=== PATIENT | male | born 1940 | race Caucasian/White ===

== ENCOUNTER 2023-03-05 11:36 | Outpatient (CLI) | payer MEDICARE, SELFPAY ==
--- NOTE | 2023-03-05 12:52 | ECG_ITS ---
Measurements Intervals [place] Rate: 60 P: 127 IA: 213 QRS: 132 QRSD: 165 T: 168 QT: 442 QTc: 444 Interpretive Statements SINUS RHYTHM WITH FIRST DEGREE AV BLOCK ARM LEADS REVERSED [INVERTED P AND QRS IN I] RIGHT BUNDLE-BRANCH BLOCK BASELINE ARTIFACT ABNORMAL ECG NO PREVIOUS ECG AVAILABLE FOR COMPARISON Electronically Signed On 03-05-2023 17:08:43 CDT by Jg Estrella M.D.
[2023-03-05 13:19] LABS: Basophils Percent Auto 0.5 % (0.2-1.2); Eosinophils Absolute Auto 0.1 K/mm3 (0-0.3); Eosinophils Percent Auto 1.4 % (0-4.4); Hematocrit 40.8 % (42.0-52.0); Hemoglobin 13.4 g/dL (14.0-18.0); Immature Granulocyte Absolute 0.01 K/mm3 (0.00-0.031); Immature Granulocyte Percent A 0.2 % (0-0.5); Lymphocytes Absolute Auto 1.61 K/mm3 (0.9-3.2); Lymphocytes Percent Auto 28.3 % (18.3-44.2); Mean Corpuscular HGB Conc 32.8 g/dl (32-36); Mean Corpuscular Hemoglobin 32.1 pg (26-34); Mean Corpuscular Volume 97.6 fl (80-100); Mean Platelet Volume 9.4 fl (7.4-10.4); Monocytes Absolute Auto 0.7 K/mm3 (0.1-0.6); Monocytes Percent Auto 12.5 % (2.6-8.5); Neutrophils Absolute Auto 3.2 K/mm3 (1.3-6.7); Neutrophils Percent Auto 57.1 % (45.5-73.1); Platelet Count Result 182 k/mm3 (150-375); Red Blood Count 4.18 M/mm3 (4.6-6.20); Red Cell Distribution Width 12.7 % (11.5-14.5); White Blood Count 5.7 K/mm3 (4.5-10.0)
[2023-03-05 13:26] LABS: Hemoglobin A1C 5.2 % (<5.7)
[2023-03-05 13:27] LABS: Urine Cotinine NEGATIVE
[2023-03-05 13:28] LABS: Albumin Level 4.5 g/dL (3.5-5.1); Anion Gap 5 mmol/L (8-16); Blood Urea Nitrogen 31 mg/dL (9-20); Calcium 9.5 mg/dL (8.4-10.2); Carbon Dioxide 26 mmol/L (22-30); Chloride 102 mmol/L (98-107); Estimated Glomerular Filt Rate 49; Glucose 99 mg/dL (65-110); Sodium 133 mmol/L (137-145)
== END 2023-03-05 11:37 | disposition home or self-care (01) ==
LOC: ANHSURGERY 11:45
PROVIDERS: Visit Provider Orthopaedic Surgery
DX: M17.11 Unilateral primary osteoarthritis, right knee (principal); Z01.818 Encounter for other preprocedural examination
CPT/HCPCS: 80048; 80307; 82040; 83036; 85025; 87081; 93005

== ENCOUNTER 2023-03-26 01:28 | Day surgery (SDC) | payer MEDICARE, SELFPAY ==
[2023-03-05 11:57] VITALS: BMI 27.8
--- NOTE | 2023-03-05 12:25 | PC.NURSE ---
Report to the Outpatient Waiting Room, entrance under the green pavilion located off [facility], at time __0600 on date __03/26/23 . Planned Procedure Time: __0730 . Time changes happen often and if your time is changed the preop area will call you the afternoon before. - You and your visitor will be asked to self-screen and do not enter if you have any COVID symptoms. - A mask is optional within the hospital at this time. Patients may have clear liquids (water, carbonated beverages, clear teas, apple juice) until 3 hours prior to surgery with a maximum of 20 ounces. - No food from midnight until time of surgery - Infants may have breast milk until 4 hours before surgery, infant formula 6 hours prior to surgery. - Children will be allowed to drink immediately following surgery. If applicable, please bring a bottle or sippy cup to assist with drinking. Juice, water, soda, and popsicles are readily available. For infants on formula, please bring formula the day of surgery. Pacifiers are allowed. Take the following medications with a SIP of water the morning of surgery: ____NONE DO NOT STOP ANY OF YOUR OTHER PRESCRIPTION MEDICATIONS PRIOR TO SURGERY ?EXCEPT THE FOLLOWING Medications to discontinue per physician ALL VITAMINS AND SUPPLEMENTS 7 DAYS PRE OP PER DR GALLEGOS. LAST DOSE 03/18/23 Please no make-up, nail thai, hairspray, perfume, deodorant, or body powder the day of surgery. No jewelry (including any body piercings) or valuables the day of surgery, leave them at home. Please take a shower or bath the night before, or the morning of, surgery with an antibacterial soap. Wear comfortable, loose fitting clothing. Children are encouraged to wear pajamas. - Jewelry must be removed prior to entering the operating room. Rings and piercings that are not removed may be cut off. - The hospital will not accept responsibility for valuables. - Please leave all valuables, including medications, at home the day of surgery. If you are going home after surgery, a licensed driver license examiner must drive you home. - NO public transportation without another adult if you receive anesthesia. - We recommend that an adult stay with you for 24 hours following discharge. - We also recommend that you do not drive, make important decision, drink alcoholic beverages, or take any drugs that were not prescribed by your health care provider for at least 24 hours after your discharge time. For Pediatric surgeries, we recommend two adults accompany the child home. Follow any additional instructions given to you from your surgeon. If you or anyone in your household have experienced Covid symptoms in the past week, please notify your surgeon or the nurse liaison at the phone number below for possible testing. VERBALAND WRITTEN instructions given to _PATIENT AND KELIN and asked if any additional questions and then verbalized understanding. Patient advised to call surgeon office or pre surgery nurse liaison [phone] if any additional questions.
[2023-03-05 12:46] VITALS: BP 189/66; PULSE 62; RESP 18; TEMP 36.8; O2SAT 98
--- NOTE | 2023-03-23 07:44 | PM.IMHP ---
H&P: HPI History of Present Illness Date/Time: 03/23/23 07:44 Chief Complaint: Bilateral knee DJD Narrative: 83-year-old male patient of Dr. Seth who presents today for a right total knee arthroplasty with cortisone injection left knee. 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 He is having pain on a daily basis. He states he had been having symptoms for more than 3 years. He is a very active 83-year-old and his knees are limiting his activities. He is not able take anti-inflammatories due to history of stomach ulcers as well as ulcerative colitis. Patient has been using Tylenol without improvement of his symptoms. He feels at this point he would like to proceed with total knee arthroplasty rather than continue any nonsurgical treatment Review of Systems Review of Systems: All systems reviewed & are unremarkable except as noted in HPI and below PMFSH Social History Social History Smoking packs per day: 2 Smoking cigarettes per day: 40.0 Years smoked: 20 Smoking pack-years: 40.00 Smoking status: Former smoker Tobacco type: cigarettes Smoking end date: 05/21/84 Additional smoking assessment comments: DENIES ANY FORM OF TOBACCO USE Alcohol intake: current Drinks per week: 21 Living arrangements: with family Spiritual care concerns: No Meds Home Medications and Allergies Home Medications Medication Instructions Recorded Confirmed Type acetaminophen 650 mg 1,300 mg PO Q12H PRN Pain 03/05/23 03/05/23 History tablet,extended release (Tylenol Arthritis Pain) glucosamine-chondroitin 500 mg-400 2 tablet PO DAILY 03/05/23 03/05/23 History mg tablet multivitamin with minerals 1 tablet PO DAILY 03/05/23 03/05/23 History vit A 1000 unit-C 300 mg-E 100 1 tablet PO DAILY 03/05/23 03/05/23 History dqrz-[id number]-[id number] 2 fn-chlg-ozlidh tablet Allergies Allergy/AdvReac Type Severity Reaction Status Date / Time oxycodone AdvReac Nausea and Verified 03/05/23 11:59 Vomiting Exam Narrative: 83-year-old male alert pleasant. He is 5 ft 11 220 lb. His right knee range of motion is from 7-125 degrees. Moderately large effusion. Minimal tenderness over the medial joint line. Mild pain with patellofemoral grind. He has normal stability in the knee. He has excellent quadriceps bulk and strength. Right hip range of motion is full without discomfort. Negative Stinchfield maneuver. He has normal sensation to the right lower extremity without edema. 2+ dorsalis pedis and posterior artery pulse palpable. Resp: Auscultation: clear to auscultation bilaterally Cardio: Rate: regular rate Rhythm: regular rhythm Assessment and Plan Assessment and plan (1) Right knee DJD: Code(s): M17.11 - Unilateral primary osteoarthritis, right knee Status: Acute Plan 83-year-old male who has severe medial compartment osteoarthritis in both knees. At this point he would like to proceed with total knee arthroplasty on the right and also received cortisone injection in the left at that time. Surgical procedure as well as the risks and complications were discussed in detail all questions were answered and we will proceed. Patient has seen his primary care doctor pre-surgical clearance and has been cleared. He has also seen Dr. Buckley, cardiology, he has been cleared without additional testing. Patient's nasal swab was negative S Chem panel his creatinine is elevated to 1.40 GFR was 49. Hemoglobin 13.4 and platelets are 182. We will plan the Eliquis for DVT prophylaxis postoperatively.
[2023-03-26] VITALS (14 sets, daily range): BP systolic 146–182; BP diastolic 65–84; PULSE 67–111; RESP 14–20; TEMP 36.1–36.8; O2SAT 93–100
--- NOTE | ~2023-03-26 | XR_ITS ---
EXAMINATION: [id number] DATE: 03/26/2023 11:21 INDICATION: Postoperative evaluation following right total knee arthroplasty. TECHNIQUE: Anteroposterior and lateral views of the right knee were obtained. COMPARISON: None. FINDINGS: Right total knee arthroplasty with patellar resurfacing appears well seated and in near anatomic alig nment. No fractures identified. Expected postoperative subcutaneous and intra-articular gas. IMPRESSION: 1. Right total knee arthroplasty, negative for postoperative purposes. Reviewed, dictated and finalized at location A. [employer]
[2023-03-26] MEDS: ACETAMINOPHEN 500 MG TABLET 1000 MG PO ×2 (06:15→17:27)
[2023-03-26] MEDS: LACTATED RINGERS 1,000 ML 30 ML IV CONT ×2 (06:22→11:29)
[2023-03-26] MEDS: VANCOMYCIN 1,250 MG/NS 250 ML BAG 166.67 MG IVPB (06:29)
--- NOTE | 2023-03-26 07:01 | P.PNAN_ITS ---
Anes - Initial Pre Proc Eval Procedure: Operation Date: 03/26/23 07:30 Proposed Procedures p Right Total Knee Arthroplasty, with Left Knee Cortisone Injection - Ollie Moya MD Date/Time: 03/26/23 07:01 Surgeon: Ollie Moya MD Pre Op Diagnosis: oa bilateral knees Patient Data Age: 83 Gender: M Height: 1.8 m Weight: 88.4 kg Last Vital Signs Temp 36.8 C 03/26/23 06:35 Pulse 67 03/26/23 06:35 Resp 16 03/26/23 06:35 BP 166/65 H 03/26/23 06:35 Pulse Ox 96 03/26/23 06:35 O2 Del Method Room Air 03/26/23 06:35 Allergies Allergy/AdvReac Type Severity Reaction Status Date / Time oxycodone AdvReac Nausea and Verified 03/26/23 06:12 Vomiting Home Medications Medication Instructions Recorded Confirmed Type acetaminophen 650 mg 1,300 mg PO Q12H PRN Pain 03/05/23 03/26/23 History tablet,extended release (Tylenol Arthritis Pain) glucosamine-chondroitin 500 mg-400 2 tablet PO DAILY 03/05/23 03/26/23 History mg tablet multivitamin with minerals 1 tablet PO DAILY 03/05/23 03/26/23 History vit A 1000 unit-C 300 mg-E 100 1 tablet PO DAILY 03/05/23 03/26/23 History trtl-[id number]-lutn 2 vx-wzib-qckfli tablet Patient hx anesthesia problems: none Family hx anesthesia problems: none Results Review: All pre-operative results and documents have been reviewed as part of the pre- operative evaluation. [facility] Social History Social History Smoking packs per day: 2 Smoking cigarettes per day: 40.0 Years smoked: 20 Smoking pack-years: 40.00 Smoking status: Former smoker Tobacco type: cigarettes Smoking end date: 05/21/84 Additional smoking assessment comments: DENIES ANY FORM OF TOBACCO USE Alcohol intake: current Drinks per week: 21 Living arrangements: with family Spiritual care concerns: No Anes - Eval Final PreProcedure Day of Procedure 03/26/23 07:01 Patient weight: overweight Heart: regular rate and rhythm Lungs: decreased breath sounds Airway: Mallampati scale Neurological: alert and oriented ASA classification: III Emergent: no Anesthetic plan: proceed Anesthesia type and monitoring: general ETT and standard monitoring Results Review: All pre-operative results and documents have been reviewed as part of the pre- operative evaluation. Informed Consent: The patient's anesthetic plan and its attendant risks and benefits were discussed with the patient/family/POA. Questions were solicited and answers provided to the satisfaction of the patient/family/POA.
[2023-03-26] MEDS: TRANEXAMIC ACID 1,000MG/ISO100 1,000 MG/100 ML BAG 200 MG IVPB (07:10)
--- NOTE | 2023-03-26 07:12 | WPDHPUPDATE1 ---
History and Physical Update Update Date/Time: 03/26/23 07:12 History and Physical has been reviewed, including an updated exam of the patient. There are NO changes in the patient's condition. Risks, benefits, and alternatives have been discussed and questions answered. Patient agrees to proceed with procedure.
[2023-03-26] MEDS: ceFAZolin 2 GM/D5W 50 ML 2 GM/50 ML BAG IVPB (07:30)
[2023-03-26] MEDS: ceFAZolin SODIUM 1 GM VIAL 3 GM (08:24)
[2023-03-26] MEDS: LIDOCAINE HCL 1% LOCAL INJ 20 ML VIAL 5 ML INFILTRATE (08:27)
[2023-03-26] MEDS: GENTAMICIN BONE CEMENT REFOBACIN 1 EACH TOPICAL (08:28)
[2023-03-26] MEDS: TRANEXAMIC ACID 1,000 MG/10 ML AMPUL 1000 MG IV PUSH (10:15)
[2023-03-26] MEDS: ceFAZolin SODIUM 1 GM VIAL 2 GM IV PUSH (10:16)
--- NOTE | 2023-03-26 11:05 | W.PM.PROC2 ---
Procedure Note - Detailed Date of Procedure 03/26/23 Pre-op Diagnosis oa bilateral knees Post-op Diagnosis Same Procedure Performed Cortisone injection left knee, right total knee arthroplasty Surgeon Ollie Moya MD Fire Control Technician B Yuan Anesthesia General Description of Procedure Patient was brought to the operating room and general anesthesia was administered. Received 2 g of Ancef weight based vancomycin 1 g of tranexamic acid preoperatively. Time-out was performed and the left knee was prepped with ChloraPrep and 80 mg of Depo-Medrol and 4 cc of 1% lidocaine were injected intra-articular into the left knee without difficulty. The right knee was prepped draped usual fashion. Limb was exsanguinated tourniquet elevated to 300 mmHg. A 9 in longitudinal incision was made and a standard parapatellar arthrotomy utilized. Partial infrapatellar fat pad excision was performed and a quadriceps synovectomy carried out. The patella was arthritic with areas of eburnated bone medially and on the apex and I felt it would be most suitable for resurfacing. The patella measured 26 mm in diameter was cut to 17 mm. Protector cap was applied. A guide kai was inserted on the femoral canal after aspiration of canal contents using the 5 degree valgus cutting bushing 9 mm of bone removed from the distal femur. This removed about equal amounts medially and laterally. He did have moderate wear on the medial femoral condyle. Next the tibial plateau was cut. We attempted to make a skim cut and this got just under the articular cartilage posterior aspect of medial femoral condyle and removed about 6 laterally. Alignment was confirmed. Meniscal remnants were excised and the PCL recessed. Flexion gap at 90? measured 8 mm medially and 10 or 11 mm laterally. The femoral sizing guide was applied the distal femur set at 4? of external rotation which matched [place] line. The 72.5 vanguard was going to notch and we cut to a 75 which fit line to line medial to lateral and with the anterior cortex. With the 10 mm CR trial on the 79 tray I noted that the knee was too tight medially and laterally especially laterally at 90? of flexion therefore an additional 2 mm of bone removed and the tibial plateau at this time. Next the tibia was punched. We sized to a size 79 which fit line to line posterolateral to anteromedial at proper rotation. We trialed with the 10 insert and the knee came out easily to full extension with play medially and laterally but in deep flexion the lateral side was too tight causing the medial side to book open. [place] flexion was only 125. I determined that less external rotation on the femoral cut would be beneficial. We confirmed that the tibial tray alignment was neutral. Tourniquet was released at 90 minutes. We took the size 72.5 vanguard cutting block removed the lateral pin and used the medial pin and the pin hole and internally rotated the cutting block approximately 2? and this resulted in cutting about 1/2 mm of bone from the posterior surface of the lateral femoral condyle. We pinned this with the spring loaded threaded pins and revise the cuts. The 72.5 fit perfectly. No notch with a nice tight fit. There was a mm and half of bone on either side of the trial distally. We replaced the tibial trial and fin punch and trialed with the 11 insert and this gave perfect balance at 90? 1 mm lateral opening 2 mm of medial opening gravity flexion 140 full extension with 2 mm of medial opening 1 mm lateral opening. With the arthrotomy towel clip this tightened down the medial side at 90? a little bit giving excellent anterior drawer stability in all positions. Posterior femoral osteophytes had already been removed the femur. The patella was sized to 37 thin lug holes were drilled and composite thickness 26 mm. The limb was re-exsanguinated tourniquet elevated to 300 mmHg. Lug holes were made in the distal femur step drill was used to make multipl
--- NOTE | 2023-03-26 11:27 | PM.OP ---
Procedure Note - Brief Procedure Note - Brief Date of procedure: 03/26/23 oa bilateral knees Procedure performed: Right total knee arthroplasty Surgeon: ZORAN Desir Findings: 83-year-old male who underwent right total knee arthroplasty on 03/26. I was involved in the procedure including positioning the patient on the OR table as well as 1st assisting through the time surgery. Total time spent was 4 hours
[2023-03-26] MEDS: fentaNYL CITRATE INJ (*CRX) 100 MCG/2 ML VIAL 25 MCG IV PUSH ×6 (11:40→12:02)
--- NOTE | 2023-03-26 13:18 | WPDCN ---
Assessment and Plan Assessment and plan (1) Osteoarthritis of both knees: Code(s): M17.0 - Bilateral primary osteoarthritis of knee Status: Acute Assessment and Plan: Postoperative day 0 status post right total knee replacement and cortisone injection of the left knee. Wound care, pain control, and DVT prophylaxis deferred to Dr. Moya. Check baseline labs in a.m. Agree with PT/OT consult. (2) Elevated blood pressure reading: Code(s): R03.0 - Elevated blood-pressure reading, without diagnosis of hypertension Status: Acute Assessment and Plan: His blood pressures have been consistently in the 150s to 160 systolic, both pre and postop. Blood pressure was noted to be 189/66 last month during preoperative testing. Continue to monitor and initiate antihypertensives depending on how he trends. (3) Elevated serum creatinine: Code(s): R79.89 - Other specified abnormal findings of blood chemistry Status: Acute Assessment and Plan: Creatinine was 1.40 and GFR was 49 on preoperative labs on 03/05/2023. He likely has underlying chronic kidney disease. Records requested from primary care provider for comparison. (4) Tachycardia: Code(s): R00.0 - Tachycardia, unspecified Status: Acute Assessment and Plan: Patient has been tachycardic for brief periods of time when up ambulating, in the 120s to 130s. He is asymptomatic with that, however. Check TSH and EKG and continue to monitor. Plan Thank you for allowing us to participate in this patient's care. Please do not hesitate to contact us with any questions. HPI Data of Consult Date/Time: 03/26/23 13:20 Requesting Physician: Ollie Moya MD Consult Narrative Reason for consult: Medical management. Narrative: This is a pleasant 83-year-old gentleman whom the hospitalist service has been consulted for help managing his medical conditions postoperatively. He is remarkably healthy and quite active for his age and his medical history is significant only for a single seizure in 2007 and colon cancer in 2011 status post colon resection and chemoradiation. Unfortunately he has daily pains in his knees which has limited his activities with the right knee causing more problems when compared to the left. He opted for replacement of the right knee today. He also had a cortisone injection of the left knee. Surgery was performed under general anesthesia with no immediate complications documented. Postoperatively his pain is well controlled and he has been up and about in the room without issue. His blood pressures have been persistently elevated, ranging anywhere from the 140s to upper 170s systolic. He reports that his blood pressure has always been well within normal limits though it was noted to be 189/66 at his preoperative appointment last month. He has been on telemetry since his surgery and has had periods of tachycardia when up walking, at times into the 120s to 130s; he is asymptomatic with that. He denies headache, chest pain, shortness a breath fever, chills, sweats, nausea, and vomiting. Review of Systems Review of Systems: Twelve systems were reviewed. No fever, chills, or sweats. No headache. No vision changes. No focal weakness or paresthesias. He denies chest pain shortness a breath. No nausea, vomiting, or diarrhea. No history of venous thromboembolism. Except as documented, all other systems were reviewed and are negative. [facility] Past Medical History Medical History (Updated 03/26/23 @ 21:55 by Lora Sagastume PA-C) Colon cancer (2010) Status post colon resection and chemoradiation. Osteoarthritis of both knees Single seizure (2007) Surgical History Surgical History (Updated 03/26/23 @ 13:25 by Lora Sagastume PA-C) History of arthroplasty of right knee (03/26/23) Per Dr. Moya History of bilateral cataract extraction History of colon resection (2010) Family Histo
[2023-03-26] MEDS: oxyCODONE HCL (*CRX) 2.5 MG TAB IR PO ×3 (13:36→20:07)
[2023-03-26] MEDS: SENNA/DOCUSATE SODIUM TABLET 2 TAB PO (17:26)
[2023-03-26] MEDS: ceFAZolin 1 GM/NS 50 ML 1 GM/50 ML BAG IVPB (17:27)
[2023-03-26] MEDS: VANCOMYCIN 1,000 MG/NS 250 ML 1,000 MG/250 ML BAG 250 MG IVPB (18:05)
[2023-03-26 18:52] LABS: Hematocrit 37.6 % (42.0-52.0); Hemoglobin 12.4 g/dL (14.0-18.0)
[2023-03-26 19:50] LABS: Thyroid Stimulating Hormone Reflex 0.427 uIU/mL (0.465-4.68)
[2023-03-26] MEDS: FAMOTIDINE 20 MG TABLET PO (20:07)
[2023-03-26 20:32] LABS: Free T4 Free Thyroxine Reflex 1.33 ng/dL (0.78-2.19)
[2023-03-26 21:13] LABS: Total Triiodothyronine (T3) 1.11 NG/ML (0.97-1.69)
[2023-03-27] VITALS: PULSE 89
[2023-03-27] MEDS: ACETAMINOPHEN 500 MG TABLET 1000 MG PO ×2 (00:26→06:14)
[2023-03-27 00:51] VITALS: BP 148/70; PULSE 87; RESP 20; TEMP 37.1; O2SAT 95
[2023-03-27] MEDS: ceFAZolin 1 GM/NS 50 ML 1 GM/50 ML BAG IVPB ×2 (02:01→09:37)
[2023-03-27 03:25] VITALS: BP 146/59; PULSE 68; RESP 20; TEMP 36.8; O2SAT 96
[2023-03-27 04:00] VITALS: PULSE 67
[2023-03-27] MEDS: oxyCODONE HCL (*CRX) 2.5 MG TAB IR PO ×2 (05:08→09:34)
[2023-03-27] MEDS: VANCOMYCIN 1,000 MG/NS 250 ML 1,000 MG/250 ML BAG 250 MG IVPB (05:09)
[2023-03-27 06:20] LABS: Basophils Percent Auto 0.1 % (0.2-1.2); Hematocrit 35.9 % (42.0-52.0); Immature Granulocyte Absolute 0.06 K/mm3 (0.00-0.031); Immature Granulocyte Percent A 0.5 % (0-0.5); Lymphocytes Absolute Auto 0.74 K/mm3 (0.9-3.2); Mean Corpuscular HGB Conc 33.4 g/dl (32-36); Mean Corpuscular Volume 95.7 fl (80-100); Mean Platelet Volume 9.3 fl (7.4-10.4); Monocytes Absolute Auto 1.1 K/mm3 (0.1-0.6); Monocytes Percent Auto 8.8 % (2.6-8.5); Neutrophils Absolute Auto 10.5 K/mm3 (1.3-6.7); Neutrophils Percent Auto 84.6 % (45.5-73.1); Platelet Count Result 163 k/mm3 (150-375); Red Blood Count 3.75 M/mm3 (4.6-6.20); Red Cell Distribution Width 12.3 % (11.5-14.5); White Blood Count 12.4 K/mm3 (4.5-10.0)
--- NOTE | 2023-03-27 06:30 | PM.PNORT ---
Subjective Subjective Date/Time Seen: 03/27/23 06:30 Interval history: Postop day 1 patient is alert. He is afebrile vital signs are stable. Chem panel this morning has not been completed yet. His dressing is dry and intact. Patient was up walking yesterday with physical therapy is comfortable. Pain is well controlled. Neurovascularly is intact. Will have the patient work with therapy this morning and if he continues to do well will be discharged home later this morning. Objective Data Vital Signs Vital Signs: Vital Signs - 24 hr 03/26/23 06:35 03/26/23 11:22 03/26/23 11:30 Temperature 36.8 C Pulse Rate 67 75 77 Respiratory Rate 16 14 14 Blood Pressure 166/65 H 177/73 H 151/72 H Pulse Oximetry 96 100 100 Oxygen Delivery Room Air Simple Face Mask Simple Face Mask Oxygen Flow Rate 6 6 03/26/23 11:45 03/26/23 12:00 03/26/23 12:12 Temperature Pulse Rate 86 90 89 Respiratory Rate 14 14 16 Blood Pressure 156/71 H 161/74 H 146/78 H Pulse Oximetry 95 95 95 Oxygen Delivery Room Air Room Air Room Air Oxygen Flow Rate 03/26/23 12:45 03/26/23 13:00 03/26/23 13:30 Temperature 36.1 C L 36.7 C 36.5 C Pulse Rate 90 91 93 Respiratory Rate 16 16 17 Blood Pressure 164/73 H 157/73 H 163/77 H Pulse Oximetry 93 95 94 Oxygen Delivery Oxygen Flow Rate 03/26/23 14:30 03/26/23 15:00 03/26/23 15:34 Temperature 36.6 C Pulse Rate 111 H Respiratory Rate 17 Blood Pressure 178/84 H Pulse Oximetry 97 Oxygen Delivery Room Air Room Air Oxygen Flow Rate 03/26/23 16:55 03/26/23 17:11 03/26/23 17:59 Temperature 36.5 C Pulse Rate 102 H 98 Respiratory Rate 16 18 Blood Pressure 182/72 H 148/74 H Pulse Oximetry 95 94 Oxygen Delivery Room Air Oxygen Flow Rate 03/26/23 20:39 03/26/23 20:00 03/27/23 00:51 Temperature 36.6 C 37.1 C Pulse Rate 95 87 Respiratory Rate 20 20 Blood Pressure 147/74 H 148/70 H Pulse Oximetry 95 95 Oxygen Delivery Room Air Oxygen Flow Rate 03/27/23 03:25 03/27/23 04:00 03/26/23 20:00 Temperature 36.8 C Pulse Rate 68 67 102 H Respiratory Rate 20 Blood Pressure 146/59 H Pulse Oximetry 96 Oxygen Delivery Oxygen Flow Rate 03/27/23 00:00 Temperature Pulse Rate 89 Respiratory Rate Blood Pressure Pulse Oximetry Oxygen Delivery Oxygen Flow Rate Intake/Output Intake/Output: Intake & Output 03/25/23 03/25/23 03/26/23 03/27/23 00:59 23:59 23:59 23:59 Intake Total 1440 390 Balance 1440 390 Meds/Results Medications: Active Medications Generic Name Dose Route Start Last Admin Trade Name Freq PRN Reason Stop Dose Admin Acetaminophen 1,000 mg 03/26/23 18:00 03/27/23 06:14 Acetaminophen 500 Mg Tablet PO 1,000 mg Q6H ANGELA Administration Apixaban 2.5 mg 03/27/23 09:00 Apixaban 2.5 Mg Tablet PO 04/07/23 21:01 Q12HR ANGELA Cefdinir 300 mg 03/27/23 09:00 Cefdinir 300 Mg Capsule PO Q12HR ANGELA Diphenhydramine HCl 25 mg 03/26/23 12:14 Diphenhydramine Hcl Inj 50 Mg/Ml Vial IV PUSH Q6H PRN Itching Famotidine 20 mg 03/26/23 21:00 03/26/23 20:07 Famotidine 20 Mg Tablet PO 20 mg Q12HR ANGELA Administration Vancomycin HCl 1,000 mg in 250 mls @ 250 mls/hr 03/26/23 18:00 03/27/23 05:09 Vancomycin 1,000 Mg/Ns 250 Ml IVPB 03/27/23 06:59 250 mls/hr Q12H ANGELA Administration Cefazolin Sodium 1 gm in 50 mls @ 100 mls/hr 03/26/23 18:00 03/27/23 02:31 Ancef 1 Gm/Ns 50 Ml IVPB 03/27/23 10:29 0 mls/hr Q8H ANGELA Infusion Morphine Sulfate 2 mg 03/26/23 12:14 Morphine Sulfate (*Crx) 2 Mg/Ml Inj IV PUSH Q4H PRN Pain Rated 7-10 Naloxone HCl 0.1 mg 03/26/23 12:14 Naloxone Hcl 0.4 Mg/Ml Vial IV PUSH Q2M PRN Opiate Reversal Ondansetron HCl 4 mg 03/26/23 12:14 Ondansetron Inj 4 Mg/2 Ml Vial IV PUSH Q4H PRN Nausea And Vomiting Oxycodone HCl 2.5 mg 03/26/23 12:14 Oxycodone Hcl (*Crx) 2.5 Mg Tab Ir
--- NOTE | 2023-03-27 06:31 | PM.DS ---
DS: Admitting Diagnosis Discharge Date 03/27 Admitting Diagnosis Right knee DJD DS: Discharge Diagnosis Discharge Diagnosis (1) Right knee DJD: Code(s): M17.11 - Unilateral primary osteoarthritis, right knee Status: Acute DS: Summary Hospital Course Hospital Course: 83-year-old male who underwent right total knee arthroplasty on 03/26. Underwent the procedure without complications. Postoperatively he has been afebrile vital signs are stable. He has been on a monitored bed and has not had any ectopy postoperatively. Did have an episode of hypertension yesterday afternoon cardiology was consulted. Otherwise patient is feeling well. He is on Eliquis for DVT prophylaxis. Pain is well controlled with scheduled Tylenol as well as oxycodone 2.5 mg. He will be discharged home on 03/27 after Cardiology evaluate him. He will go home with a 1 week course of Omnicef. He also be on Senokot and MiraLax for constipation. Patient was advised to keep leg elevated home to prevent swelling but also do his exercises on a regular basis home every hour. He has outpatient therapy starting later this week. Time Spent with Patient Time attestation: Total time spent providing and/or coordinating discharge services: DS: Data Data Completed and Pending Labs on day of discharge: Labs from last 24 hours 03/27/23 03/26/23 03/26/23 06:12 18:38 06:23 WBC 12.4 H RBC 3.75 L Hgb 12.0 L 12.4 L Hct 35.9 L 37.6 L MCV 95.7 MCH 32.0 MCHC 33.4 RDW 12.3 Plt Count 163 MPV 9.3 Immature Gran % (Auto) 0.5 Neut % (Auto) 84.6 H Lymph % (Auto) 6.0 L [place] % (Auto) 8.8 H Eos % (Auto) 0.0 Baso % (Auto) 0.1 L Lymph # (Auto) 0.74 L [place] # (Auto) 1.1 H Eos # (Auto) 0.0 Baso # (Auto) 0.0 Abs Immat Gran (auto) 0.06 H Absolute Neuts (auto) 10.5 H Absolute Nucleated RBC 0.0 Nucleated RBC % 0.0 Sodium Pending Potassium Pending Chloride Pending Carbon Dioxide Pending Anion Gap Pending BUN Pending Creatinine Pending Estim Creat Clear Calc Pending Estimated GFR Pending Glucose Pending Calcium Pending Magnesium Pending Total Bilirubin Pending Direct Bilirubin Pending AST Pending ALT Pending Alkaline Phosphatase Pending Total Protein Pending Albumin Pending TSH (Reflex) 0.427 L Free T4 1.33 Total T3 1.11 Blood Type A Positive Antibody Screen Negative Discharge Plan Discharge Patient Disposition: Home, Self-Care Discharge Instructions: BUD GALLEGOS M.D [facility], [facility] [address] [place] [address] POST-OPERATIVE DISCHARGE INSTRUCTIONS TOTAL KNEE ARTHROPLASTY 1. When resting, lie on back with leg elevated above heart to minimize swelling. Significant swelling could indicate a blood clot and if this occurs call the office (or go to the ER) to have a venous ultrasound. 2. Do exercise 5 times a day. 3. Do not sit with leg down except for meals. 4. Wound Care: Nursing will give additional dressings at discharge. Patient to change dressing at home 1 week from surgery, then maintain until seen in office. 5. May shower with dressing in place. 6. Follow weight bearing status instructions. IMPORTANT: Remember not to sit in the chair for more than 30 minutes at a time. As a rule, during the first 14 days after surgery, only sit in the chair to work on the chair knee bending stretch exercise, for meals or for use of the restroom. Sitting in the chair promotes significant swelling in the knee and leg which will make the knee stiff and more painful and which simulates having a blood clot in the veins of the leg. If this type of significant diffuse swelling occurs, an ultrasound at the hospital will be necessary to rule out a blood clot. Be up walking around with the walker for a few minutes every hour while awake and then rest
[2023-03-27 06:39] LABS: Alanine Aminotransferase 18 U/L (6-50); Albumin Level 3.8 g/dL (3.5-5.1); Alkaline Phosphatase 40 U/L (38-126); Anion Gap 5 mmol/L (8-16); Aspartate Amino Transferase 23 U/L (17-59); Bilirubin,Total 0.7 mg/dL (0.2-1.3); Blood Urea Nitrogen 26 mg/dL (9-20); Calcium 9.1 mg/dL (8.4-10.2); Carbon Dioxide 25 mmol/L (22-30); Chloride 102 mmol/L (98-107); Estimated CRCL calculation 45 ml/min; Estimated Glomerular Filt Rate 58; Glucose 125 mg/dL (65-110); Magnesium 1.8 mg/dL (1.6-2.3); Potassium 4.7 mmol/L (3.4-5.0); Sodium 132 mmol/L (137-145)
[2023-03-27 08:00] VITALS: PULSE 64
--- NOTE | 2023-03-27 08:03 | WPDANESPN ---
Anes - Prog Note Post-Op Date/Time: 03/27/23 08:03 Cardiovascular status: normal Respiratory status: normal Airway patency: baseline Mental status: baseline Post-Op hydration status: normal Vital Signs: Last Vital Signs Temp 36.8 C 03/27/23 03:25 Pulse 67 03/27/23 04:00 Resp 20 03/27/23 03:25 BP 146/59 H 03/27/23 03:25 Pulse Ox 96 03/27/23 03:25 O2 Del Method Room Air 03/26/23 20:00 O2 Flow Rate 6 03/26/23 11:30 Pain Score (VAS): 0 I/O: Intake & Output 03/26/23 03/27/23 03/27/23 23:59 07:59 15:59 Intake Total 600 640 Balance 600 640 Laboratory Tests 03/27/23 06:12 03/27/23 06:12 03/26/23 03/27/23 18:38 06:12 WBC 12.4 H RBC 3.75 L Hgb 12.4 L 12.0 L Hct 37.6 L 35.9 L MCV 95.7 MCH 32.0 MCHC 33.4 RDW 12.3 Plt Count 163 MPV 9.3 Immature Gran % (Auto) 0.5 Neut % (Auto) 84.6 H Lymph % (Auto) 6.0 L [place] % (Auto) 8.8 H Eos % (Auto) 0.0 Baso % (Auto) 0.1 L Lymph # (Auto) 0.74 L [place] # (Auto) 1.1 H Eos # (Auto) 0.0 Baso # (Auto) 0.0 Abs Immat Gran (auto) 0.06 H Absolute Neuts (auto) 10.5 H Absolute Nucleated RBC 0.0 Nucleated RBC % 0.0 Sodium 132 L Potassium 4.7 Chloride 102 Carbon Dioxide 25 Anion Gap 5 L BUN 26 H Creatinine 1.20 Estim Creat Clear Calc 45 Estimated GFR 58 L Glucose 125 H Calcium 9.1 Magnesium 1.8 Total Bilirubin 0.7 Direct Bilirubin 0.0 AST 23 ALT 18 Alkaline Phosphatase 40 Total Protein 7.0 Albumin 3.8 TSH (Reflex) 0.427 L Free T4 1.33 Total T3 1.11 Post-procedural complaints: none Patient Feedback: Patient satisfied with anesthetic care.
[2023-03-27] MEDS: polyethylene glycoL 3350 17 GM POWD.PACK PO (09:34)
[2023-03-27] MEDS: CEFDINIR 300 MG CAPSULE PO (09:34)
[2023-03-27] MEDS: FAMOTIDINE 20 MG TABLET PO (09:34)
[2023-03-27] MEDS: SENNA/DOCUSATE SODIUM TABLET 2 TAB PO (09:34)
[2023-03-27] MEDS: APIXABAN 2.5 MG TABLET PO (09:34)
--- NOTE | 2023-03-27 10:17 | PM.CNCAR ---
Assessment and Plan Assessment and plan (1) Elevated blood pressure reading: Code(s): R03.0 - Elevated blood-pressure reading, without diagnosis of hypertension Status: Acute Assessment and Plan: Has elevated blood pressures in the post-operative period. He is otherwise asymptomatic in regards to this. He may need an antihypertensive if he continues to have an elevated blood pressure, but this can be followed up on as an outpatient. Will arrange outpatient follow up in my clinic. (2) Tachycardia: Code(s): R00.0 - Tachycardia, unspecified Status: Acute Assessment and Plan: Brief, intermittent and infrequent episodes of SVT noted yesterday on tele. TSH mildly low, but T4 and T3 levels are normal. Further management/evaluation as an outpatient. Will arrange outpatient follow up in my clinic. Plan Okay for discharge home from a cardiology standpoint. Will have patient follow up in my clinic. History of Present Illness History of Present Illness Consult date/time: 03/27/23 10:17 Requesting physician: Ollie Moya MD Consult reason: Other (Hypertension, SVT) Reason For Visit: oa bilateral knees Narrative: We are consulted for hypertension, SVT. This is an 83 year old male with history of a single seizure in 2008 and colon cancer in 2010 s/p colon resection and chemoradiation. Patient underwent right total knee arthroplasty on 03/26/2023. His blood pressures have been elevated in the post-operative period. We are also consulted for SVT. Patient deniess any prior cardiac history. States he felt like he had a caffeine high yesterday that went away after some time but no overt palpitations, chest pain. He is otherwise feeling well and ready for discharge from an Ortho standpoint. Review of Systems Review of Systems: All systems reviewed & are unremarkable except as noted in HPI and below (HPI) [facility] Past Medical History Medical History Colon cancer (2010) Status post colon resection and chemoradiation. Osteoarthritis of both knees Single seizure (2007) Surgical History Surgical History History of arthroplasty of right knee (03/26/23) Per Dr. Moya History of bilateral cataract extraction History of colon resection (2010) Family History Family History Other Family history non-contributory Social History Social History Social History: Surrogate medical decision maker: Ana Hazel, spouse. Code status: Full code. Smoking packs per day: 2 Smoking cigarettes per day: 40.0 Years smoked: 20 Smoking pack-years: 40.00 Smoking status: Former smoker Tobacco type: cigarettes Smoking end date: 05/21/84 Alcohol intake: current Drinks per week: 21 Substance use: current Substance use type: does not use Lack of Transportation: No Lack of Food: Never True Current Housing: I Have Housing Concerned About Future Housing: No Difficulty Paying Gas/Electric Bills: No Difficulty Paying for Meds: No Currently Unemployed: No Education: Don't Know Difficulty w/ Childcare or Family Care: No Living arrangements: with family Occupation/Education: retired Spiritual care concerns: No Meds Home Medications and Allergies Home Medications Medication Instructions Recorded Confirmed Type multivitamin with minerals 1 tablet PO DAILY 03/05/23 03/26/23 History vit A 1000 unit-C 300 mg-E 100 1 tablet PO DAILY 03/05/23 03/26/23 History [id number] 2 yg-qcvk-ulacmc tablet acetaminophen 500 mg tablet 1,000 mg PO Q6H #90 tabs 03/27/23 Rx apixaban 2.5 mg tablet (Eliquis) 2.5 mg PO Q12HR #28 tabs 03/27/23 Rx cefdinir 300 mg capsule 300 mg PO Q12HR #14 caps 03/27/23 Rx famotidine 20 mg tablet 20 mg PO Q12HR #60 tabs 03/27/23 Rx oxycodon
[2023-03-27 10:29] VITALS: BP 140/60; PULSE 64; RESP 16; TEMP 36.4; O2SAT 98
--- NOTE | 2023-03-27 10:55 | PC.NURSE ---
On 03/27/23, the student, [Michelle Lopez], provided care and completed [facility] documentation on this patient. I have reviewed the student's documentation and agree with the findings.
== END 2023-03-27 11:44 | disposition home or self-care (01) ==
LOC: ANHSURGERY 05:47 → ANH2MED 12:18
PROVIDERS: Physician Assistant; Physician Assistant Surgical; Visit Provider Orthopaedic Surgery
PROC: (CPT 27447; principal; 2023-03-26 07:30)
DX: M17.0 Bilateral primary osteoarthritis of knee (principal); R03.0 Elevated blood-pressure reading, without diagnosis of hypertension; I47.10 Supraventricular tachycardia, unspecified; Z87.891 Personal history of nicotine dependence
CPT/HCPCS: 27447; 20610; 36415; 73560; 80048; 80076; 83735; 84439; 84443; 84480; 85014; 85018; 85025; 86850; 86900; 86901; 97110; 97116; 97161; 97165; 97530; 97535; A9270; C1713; C1776; J0171; J0330; J0360; J0690; J1040; J1100; J1170; J1885; J2270; J2405; J2704; J2795; J3010; J3370; J7120

== ENCOUNTER 2025-03-19 09:54 | Outpatient (CLI) | payer MEDICARE, SELFPAY ==
--- OUTSIDE RECORDS SUMMARY | 2024-10-09 04:31 | XMS_ITS | Continuity of Care Document ---
Author Organization [facility], L TD Address [address] [place] [address] Phone Care Team Providers Care Remedial Masseur Name Role Phone Bam Murcia MD Unavailable [...] Provider Providers Copied on Encounter [facility], [address] [place] [address], [id number] , tel: [phone] [facility] No Information 5 Divina Kuhn. [address] [place] [address], [id number] , [place]. tel: [phone] [address], [id number] , [place] tel: [phone] [facility] vision exam OU with f/u IOL OU, PCO OU, and Refractive (chief complaint) Other secondary cataract, bilateralPresence of intraocular lensHypermetropia , bilateralRegular astigmatism, bilateralPresbyop ia 5 Divina Kuhn. [address] [place] [address], [id number] , [place]. tel: [phone] Referring Provider: Bam Tomas, [address] [place] [address], [id number] . tel:[phone] [facility], [address] [place] [address], [id number] , [place] tel: [phone] [facility] f/u PCO OS, IOL OU and Refractive Error OU (chief complaint) Presence of intraocular lensHypermetropia , bilateralRegular astigmatism, bilateralPresbyop iaOther secondary cataract, bilateral 4 Divina Kuhn. [address] [place] [address], [id number] , [place]. tel: [phone] Referring Provider: Bam Tomas, [address] [place] [address], [id number] . tel:[phone], [id number] , [place] tel: [phone] [facility] f/u IOL OU and Ref Err OU. (chief complaint) Presence of intraocular lensHypermetropia , bilateralRegular astigmatism, bilateralPresbyop iaOther secondary cataract, left eye Jul-0 3 Divina Kuhn. [address] [place] [address], [id number] , [place]. tel: [phone] Referring Provider: Bam Tomas, [address] [place] [address], [id number] . tel:[phone] [facility], [address] [place] [address], [id number] , [place] tel: [phone] [facility] vision has improved (chief complaint) Cataract extraction status, left eyeCataract extraction status, right eyePresence of intraocular lensPresbyopiaReg ular astigmatism, bilateralHypermet ropia, bilateral Mar- 2 Divina Kuhn. [address] [place] [address], [id number] , [place]. tel: [phone] [facility], [address] [place] [address], [id number] , [place] tel: [phone] [facility] Post-op cataract surgery (chief complaint) Cataract extraction status, left eye 2 Divina Kuhn. [address] [place] [address], [id number] , [place]. tel: [phone] Referring Provider: Bam Tomas, [address] [place] [address], [id number] . tel:[phone] [facility], [address] [place] [address], [id number] , [place] tel: [phone] [facility], [facility] No Information 2 Divina Kuhn. [address] [place] [address], [id number] , [place]. tel: [phone] [facility], [address] [place] [address], [id number] , [place] tel: [phone] [facility] No Information 2 Divina Kuhn. [address] [place] [address], [id number] , [place]. tel: [phone] Referring Provider: Bam Tomas, [address] [place] [address], [id number] . tel:[phone] [facility], [address] [place] [address], [id number] , [place] tel: [phone] [facility] Post-op cataract surgery (chief complaint) Cataract extraction status, right eye 2 Divina Kuhn. [address] [place] [address], [id number] , [place]. tel: [phone] [facility], [address] [place] [address], [id number] , [place] tel: [phone] [facility], [facility] No Information 2 Divina Kuhn. [address] [place] [address], [id number] , [place]. tel: [phone] [facility], [address] [place] [address], [id number] , tel: [phone] [facility] trouble reading and driving (chief complaint) PresbyopiaHyperme tropia, bilateralRegular astigmatism, right eye 2 Divina Kuhn. [address] [place] [address], [id number] , [place]. tel: [phone] Family History Family Member Type Diagnosis Age At Onset Problem No family history of Glaucom a Problem No family history of Catarac ts Problem No family history of Diabete s mellitus Mother Problem degenerative disorder of mac flaquito Father Problem Hypertension Payers Payer name Insurance type Covered green party ID Authoriza tion(s) No Information Social [...]
--- OUTSIDE RECORDS SUMMARY | 2025-03-19 10:59 | XMS_ITS | Data Portability ---
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 I feel the medial subluxation has on the AP Stork view makes him less than an ideal candidate for a partial knee replacement. I explained this the patient and he would not be interested a partial knee replacement any way. He has made the decision that he would like to proceed with knee replacement surgery as he has not been able to achieve satisfactory relief with non operative strategies. For I have discussed knee replacement with him in detail. He was given the Ortho info handout on total knee arthroplasty for his review. I have discussed with him that we could give him a cortisone shot in his left knee time of surgery and like to do that. I have also recommended that he use a felt heel lift under the left heel after his right knee replacement. Knee replacement does lengthen the leg about 3/8 of an inch and a flexion contracture on his left knee without heel lift may promote recurrent flexion contracture of the right knee and he understands. I have explained that they will be numbness lateral to the incision and that some patients have difficulty kneeling after knee replacement. Risk of complications were reviewed with him in detail. I explained that the risk of mortality in Octogenarians is 1/200. Risk of infection was discussed. His remaining teeth are in good condition he does see the dentist periodically. I recommended that he use antibiotics before dental work in the future. He has no history of blood clots in his legs. I have explained the risk of blood clots to him and have recommended using Eliquis for 2 weeks followed by a baby aspirin for 4 weeks after surgery this was explained. Risk of the components wearing out or loosening requiring revision surgery was explained. Risk of ligament injury fracture stiffness instability bleeding transfusion nerve injury and medical complications such as heart attack stroke pulmonary embolism and were reviewed. Because of his advanced age I recommended that he see a community living instructor before surgery for a cardiac risk assessment and he is in agreement with that. He plans to do his physical therapy and [facility]. His cousin is a physical therapist and I have given him the chair stretch knee flexion protocol so he can employ this after surgery. It would be beneficial I believe to use Celebrex after surgery to help with his pain control and range of motion particularly since he has a propensity for nausea with oxycodone. Since he is 13 years out from his colon surgery and peptic ulcer problems associated with radiation therapy and chemotherapy, is risk of bleeding ulcer should be acceptably low from short-term use of Celebrex but we would add a stomach protector to this regimen also. He lives with his at home so I would expect he would be able to return home day after surgery if his medical status is good. We will plan to proceed as discussed. 60 minutes were spent in total care this patient more than half the time spent in [id number] care. Not available 12/31/2022 19:17:04 04/09/2023 04/09/2023 HPI: Patient returns. He is here for follow-up of his right total arthroplasty. Two weeks out. Overall doing well. He has 1 more day of his Eliquis that he will transition to baby aspirin twice a day. Using Celebrex on. We will pain is well controlled. He is only taking 2.5 mg oxycodone several times a day and is also taking Tylenol. He has finished up his antibiotics. Physical exam: Patient's incision is well healed. He is walking with a walker relatively well. Range of motion is from 0-100 degrees. There is no increased swelling in either lower extremity. Impression: Patient is doing well 2 weeks out right total knee arthroplasty. Again he will transition to baby aspirin twice a day once the Eliquis is done. I have refilled his pain pills per his request today. He will transition to cane as comfort allows. We will see him back 2 weeks. [email or web address] Not available 04/09/2023 15:54:23 04/23/2023 04/23/2023 Patient returns. He is 4 weeks out after right total knee arthroplasty. He was doing very well he states until last week when he tries sleeping in the bed. He had been sleeping in recliner. Sleeping in bed he tried sleeping on side in after about 2 hours as knee was sore and feels that has made his knee more stiff and sore since. Exam today is range of motion 5-90 degrees. His incision shows 2 tiny suture abscesses and I decompressed both of these after all call prep and probed them and they were very superficially is no surrounding erythema. The knee has only a minimal effusion. He has no erythema or edema in the front of the knee looks very benign. He is walking with a cane today. He states that before last week he was off the cane. We have not used Celebrex in this gentleman because of his history of bleeding ulcers 10 years ago after his radiation therapy. He is not using nonsteroidal anti-inflammatory medications since any prefer not to take the chance that would cause bleeding ulcers if tried. He has been taking Tylenol between 3004 1000 a day. He has only been taking 2 or 3 of the oxycodone 2.5 mg tablets. He has no side effects from these. He has not been doing the chair stretch exercise at home. I had him demonstrate how to do this today and he was not doing it correctly. I have given him the instruction sheet illustrating this exercise I would like him to focus on this for a few minutes every hour while awake. I discussed with him at length that if he does not push hard now he may have difficulty with stiffness and definitely. I explained that in some patients with significant stiffness from not doing the stretching exercises after surgery we need to manipulate the knee under anesthesia to release the adhesions. I would recommend that he start a regimen of consistent oxycodone 2.5 mg every 4 hours whether he thinks he needs it or not and he can coincide the Tylenol dose is 650 mg every 4 hours to simplify his medication regimen. I will see him back in 2 weeks assess his progress. Not available 04/23/2023 14:45:31 05/16/2023 05/16/2023 s. He is now 7 weeks out after total knee replacement right knee on 03/26/2023 he feels he is doing much better. He is walking without gait aid. On exam he has range of motion from 7-115 degrees today. His wound is healed. He has no knee or leg swelling. He states that therapy has been very aggressive pushing hard and knee flexion. Patient had no idea on how to perform the sitting chair stretch exercise to work on flexion stretching himself. He cannot recall whether have been working on this and physical therapy. Patient has been doing a lot of other exercises in therapy. I have written out hopefully very clear instructions again that ask the therapy where he is going to focus on having the patient do the stretching exercise to stretch the out straight as well as the chair stretch exercise to work on stretching and I have asked the patient to spent 5 minutes at least 3 or 4 times a day working on these exercises each and every day on his own. Patient seems willing to do this and indicates this. I have tried to teach in the chair stretch exercise again and he is having some difficulty learning this and I think that repetition and testing over an over will help with his mask during this technique which is the best way for him to regain flexion and with extension stretching, this needs to be it here to as well as he is gradually losing straightening because he is not focusing on he has range of motion exercises. I tried to speak to his therapist at [facility] [phone] but she is out of the office this week on holiday. I am going to ask Tamika to call Sunday to speak to Griffin to emphasize the request to follow the written instructions and I have given him another copy of the illustrated process of working on stretching into flexion and extension. Patient states he has several these at home now. I have stable did to the physical therapy order make sure that this goes with him to the therapist. I will see him back in 4 weeks assess his progress. Not available 05/16/2023 17:56:15 06/15/2023 06/15/2023 Patient returns. He is now 2 and half months after right total knee arthroplasty. He has been working hard on doing the chair stretch exercise several times a day and he states that the sharp pain in the distal quadriceps tendon region went away 2 weeks and since that time he has found can do the exercises much more easily. On exam today as flexion 125 with chair stretch he has extension to about 3 . There is no swelling or effusion his wound is nicely healed. Calf is nontender. He is walking normally without gait aid and completely comfortable. Patient is pleased with his progress. I had a long discussion with him about the benefits of spending a few minutes each and every day working on the chair stretch exercise he does not lose range of motion the next year and I suspect he will be able to flex to 135 if he does this. Will see him back in 9 half months for his 1 year follow-up or sooner if he has any problems. Not available 06/15/2023 13:06:53 Plan of Treatment Reminders Order Date Submit Date Provider Last Modified By Organization Details Last Modified Time Details Appointments None recorded. Lab None recorded. Referral None recorded. Procedures None recorded. Surgeries None recorded. Imaging XR, knee [address] [place], [address], [place], [address], 11:44:40 Medication Orders oxycodone 5 mg tablet 2022 023 [facility] [address], [address] [place] [address], [address], 15:55:25 Patient TargetsNo targets recorded. Patient InstructionsNo instructions recorded. Reason for Referral None Reported. Results Created Date Observation Date Name Description Value Unit Range Abnormal Flag Note LastModifiedBy Organization Detail LastModifiedTime 03/26/2003/26/2023 XR, knee No observ ation record ed. [email or web address] [facility] [address], [place], [address], 03/27/2023 12:33:43 05/16/20 23 XR, knee No observ ation record ed. [facility] [address] [facility] [address], [place], [address], 05/16/2023 17:56:41 Result Notes None recorded. Problems Name Problem SNOMED Code Status Onset Date Resolution Date Notes Provider Name and Address Organization Details Recorded Time Preoperativ e cardiovascu lar examination Active 2022 LAMONTE Rob, [facility] [employer] [facility] 3 11:49:33 Osteoarthri tis of right knee joint [id number] 00 Active 2022 LAMONTE Rob, [facility] 3 10:25:57 Problem Notes None recorded. Medical Equipment None Reported. Medications Name Sig Start Date Stop Date Status Note LastModified by Organization Details LastModified Time fluorouraci l 5 % topical cream APPLY THIN LAYER TOPICALLY TO AFFECTED AREA 1 TO 2 TIMES DAILY FOR SUN DAMAGE 05/16 completed Not Available Not Available Not Available famotidine 20 mg tablet TAKE 1 TABLET BY MOUTH EVERY 12 HOURS 05/16 completed Not Available Not Available Not Available cefdinir 300 mg capsule TAKE 1 CAPSULE BY MOUTH EVERY 12 HOURS 05/16 completed Not Available Not Available Not Available oxycodone 5 mg tablet TAKE 1/2 (ONE-HALF ) TABLET BY MOUTH EVERY 4 HOURS active Not Available Not Available No t Available Eliquis 2.5 mg tablet TAKE 1 TABLET BY MOUTH EVERY 12 HOURS 05/16 completed Not Available Not Available Not Available Vitals None Recorded Social History None recorded. Functional Status None recorded. Mental Status None recorded. Family History Relationship Description Onset Age of this Age Resolved Age Notes LastModified by Organization Details LastModified Time Mother Family history of malignant neoplasm [email or web address] Not available 2022 12:24:47 Father Family history of stroke Not available 2022 12:24:55 Medical History No medical history recorded. Past Encounters Encounter ID Performer Location Encounter Start Date Encounter Closed Date Diagnosis/Indication Diagnosis SNOMED-CT Code Diagnosis ICD10 Code Diagnosis IMO Codes Diagnosis Note [id number] Ollie Moya MD [facility] [place] [address] [place] [address] 12/29/2022 11:58:37 01/01/2023 10:18:19 [id number] Ollie Moya MD [facility] [address] [place] [address] 04/09/2023 14:59:42 04/09/2023 16:00:08 History of right total knee replacement [id number] Z96.074 [id number] Ollie Moya MD [facility] [address] [place] [address] 04/23/2023 14:02:17 04/23/2023 15:28:14 History of right total knee replacement [id number] Z96.117 [id number] Ollie Moya MD [facility] [place] [address] [place] [address] 05/16/2023 10:10:57 05/18/2023 11:44:40 History of right total knee replacement [id number] Z96.453 [id number] Ollie Moya MD [facility] [address] [place] [address] 06/15/2023 11:20:34 06/15/2023 14:43:18 History of right total knee replacement [id number] Z96.651 Health Concerns Section Related Observation LastModified by Organization Detai ls LastModified Time None Recorded Concern Status LastModified by Organization Details LastModified Time None Recorded Advance Directives Directive None Recorded Payers Insurance Date Sequence Insurance Name Policy Number Policy La Covered Member ID La Member ID Guarantor Name 10/06/2023 3 [employer] Venkat Rosario [id number] Venkat Rosario 06/13/2023 1 MED[place]ARE-[place] (MEDICARE) Venkat Rosario [id number] eVnkat Rosario 06/20/2023 2 [employer] (MEDICARE SUPPLEMENT) Venkat Rosario [id number] Venkat Rosario Notes Date Note Type Note Provider Name and Address Organization Details Recorded Time 12/29/2022 text/html patient is an 82-year-old gentleman was referred by Dr. Seth in [facility] for evaluation of his knees. Both of his knees bother him but the right knee is significantly worse. He has been treating with Dr. Madsen and would like to discuss proceeding with right knee replacement in March. His last cortisone shot in the right knee was in December 04 and he had aspiration of 4 vials of fluid that time as well. The shots give him only a little bit of relief and this last shot helped only slightly. His chief complaint is medial knee pain. He has had symptoms for more than 3 years. His pain is aggravated by activity and his right knee gives way and limits how far he can walk. He has tried a brace injections and physical therapy. He takes Tylenol 1800 mg per day. His right knee causes him to limp. His past history is significant for stomach ulcers in 2009. At that time he was undergoing radiation and chemotherapy prior to a colon resection and it is thought that these treatments predisposed him to the peptic ulcer problem and he has not had any symptoms since but in general he avoids any nonsteroidal anti-inflammatory medications even Advil or Aleve out of fear that he will develop another bleeding ulcer as he wants to avoid having to undergo upper GI endoscopy again. He has had no symptoms of peptic ulcer disease since. He takes no medication to prevent peptic ulcers. He has a remote smoking history quitting 30 years ago. He gets nauseated with oxycodone. He denies any heart disease problems. He notes that his father lived to be 94 an uncle it to be 100. Patient has never seen a community living instructor. His treatment for his knees has included physical therapy was prior to 2019. X-rays were reviewed dated 12/04/2022 and demonstrate advanced medial compartment osteoarthritis in both knees moderate medial subluxation of femur on tibia. 7 degree anatomic axis varus deformity noted in the right knee. Valgus stress view of the right knee demonstrates some opening of the medial compartment not quite normal and persistent medial subluxation of femur on tibia. Similar findings on the left knee. Ollie Moya MD [address], [place], [address], [employer] 12/31/2022 19:17:33 05/16/2023 text/html patient return Ollie Moya MD [address], [place], [address], [employer] [facility] 05/16/2023 17:57:05
--- OUTSIDE RECORDS SUMMARY | 2025-03-19 10:59 | XMS_ITS | Clinical Summary ---
Author Organization [facility] Address [address] [place] [address] Care Team Providers Care Nitrocellulose Operator Name Role Phone Unavailable Primary Care Provider Unavailabl e Source Comments [facility] [employer],non-owned Affiliates and Associated Physician Practices is amultiple site organization consisting of ambulatory clinics and hospital sitesin [place], [place], [place] and [place]. This disclosure is being madepursuant to the Care Everywhere program and may not contain all information available regarding this patient. Last updated 18.[facility] [employer] Social History Tobacco Use Types Packs/Day Years Used Date Smoking Tobacco: Never Assessed Sex and Gender Information Value Date Recorded Sex Assigned at Not on file Legal Sex Male 2:05 PM CDT Gender Identity Not on file Sexual Orientation Not on file Plan of Treatment Health Maintenance Due Date Last Done Comments MEDICARE AWV 12 MONTHS 1940 DTAP/TDAP/TD VACCINES (1 - Tdap) 01/06/1960 PNEUMOCOCCAL VACCINE 50+ (1 of 1 - PCV) 1991 ZOSTER VACCINE (1 of 2) 1991 Respiratory Syncytial Virus (RSV) Vaccine Pt: or over 60 yrs (1 - 1-dose 75+ series) 01/06/2016 DEPRESSION SCREENING 05/21/2024 COVID-19 VACCINE (1 - 2023-2 5 season) 2025 INFLUENZA VACCINE (#1) 2025 HEPATITIS B VACCINE Aged Out No longe r eligible based on patient's age to complete this topic HIB VACCINE Aged Out No longer eligi ble based on patient's age to complete this topic HPV VACCINE Aged Out No longer eligi ble based on patient's age to complete this topic MENINGOCOCCAL (Group B) VACC INE SHARED DECISION-MAKING Aged Out No longer eligibl e based on patient's age to complete this topic MENINGOCOCCAL GROUPS A/C/Y/W VACCINE Aged Out No longer eligible b ased on patient's age to complete this topic Insurance MEDICARE AETNA
--- OUTSIDE RECORDS SUMMARY | 2025-03-19 10:59 | XMS_ITS | Clinical Summary ---
Author Organization [facility] [address] Address [address] [place] [address] Care Team Providers Care Warp Drawer Name Role Phone Ollie Moya MD Primary Care Provider [phone] Allergies Active Allergy Reactions Criticality Noted Date Comments Oxycodone Nausea only,Vomiting Reaction: NAUSEA, VOMITING, Medications acetaminophen ER (TYLENOL) 650 mg 8 hr tablet Take by mouth Active Active Problems Problem Noted Date Diagnosed Date Preoperative clearance 03/07/2023 Ulcerative pancolitis 09/13/2010 Malignant neoplasm of rectum 09/13/2010 Surgical History Surgery Date Site/Laterality Comments ILEOSTOMY Ileostomy Care - (Added by ALEK Conv) OTHER SURGICAL HISTORY 05/21/2010 - 05/20/2011 colon removed Medical History Medical History Date Comments 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 - (Added by ALEK Conv) Colon cancer (HCC) Family History Medical History Relation Name Comments Stroke Father Cancer Mother Relation Name Status Comments Father Mother Social History Tobacco Use Types Packs/Day Years Used Date Smoking Tobacco: Former Tobacco Cessation:Counseling Given: Not Answered Personal Safety Answer Date Recorded Getting School Help Needed Not on file 07/13 Sex and Gender Information Value Date Recorded Sex Assigned at Not on file Legal Sex Male 8:07 PM CORPORATE WELLNESS COORDINATOR Gender Identity Not on file Sexual Orientation Not on file Obstetrics History Last Filed Vital Signs Vital Sign Reading Time Taken Comments Blood Pressure 170/72 03/07/2023 10:44 AM CDT Pulse 66 03/07/2023 10:44 AM CDT Temperature - - Respiratory Rate - - Oxygen Saturation 96% 03/07/2023 10: 44 AM CDT Inhaled Oxygen Concentration - - Weight 91.5 kg (201 lb 11.2 oz) 023 10:44 AM CDT Height 180.3 cm (5' 11) 03/07/2023 10: 44 AM CDT Body Mass Index 28.13 03/07/2023 10:44 AM CDT Plan of Treatment Health Maintenance Due Date Last Done Comments Depression Screening 1940 Fall Risk Assessment 1941 Hepatitis B Screening 1959 Pneumococcal vaccine 65+ (1 of 1 - PCV) 1991 Zoster Vaccine (1 of 2) 1991 Well Visit 65+ 2006 Covid-19 Vaccine (6 - 2024-2 6 season) 2025 04/20/2022, 08/26/2021, 04/21/2021, Additional history exists Influenza Vaccine (#1) 2025 03/20/2022 DTaP/Tdap/Td Vaccine (2 - Td or Tdap) 10/07/2027 10/06/2017 Insurance MEDICARE A[employer]NA SENIOR SUPPLEMENT Care Teams Warp Drawer Relationship Specialty Start Date End Date Ollie Moya MD [address] [place] [address] PCP - General Orthopedic Surgery 01/08/23
--- OUTSIDE RECORDS SUMMARY | 2025-03-19 10:59 | XMS_ITS | Encounter Summary ---
Author Organization [facility] Address [address] [facility] [place] [address] Care Team Providers Care Pari Mutuel Ticket Seller Name Role Phone Unavailable Primary Care Provider Unavailabl e Encounter Details Date Type Department Care Team (Late st Contact Info) Description 10/09/2024 Lab Requisition [facility] - DermPath Lab [address] [facility] [place] [phone] Claire Hammond PA [address] [place] [phone] Neoplasm of uncertain behavior of skin Social History Tobacco Use Types Packs/Day Years Used Date Smoking Tobacco: Never Assessed Sex and Gender Information Value Date Recorded Sex Assigned at Not on file Legal Sex Male 2:05 PM CDT Gender Identity Not on file Sexual Orientation Not on file documented as of this encounter Plan of Treatment Not on file documented as of this encounter Procedures Procedure Name Priority Date/Time Associated Diagnosis Comments DERMATOPATHOLOGY Routine 10/09/2024 11:1 8 AM CDT Neoplasm of uncertain behavior of skin documented in this encounter Results * DERMATOPATHOLOGY (10/09/2024 11:18 AM CDT) Case Report Dermatopathology Report Case: [id number] Authorizing Provider: Claire Hammond PA Collected: 10/09/2024 11:18 AM Ordering Location: [facility] Physician [facility] - Received: 10/14/2024 07:06 AM DermPath Lab Pathologist: Mariella Parr MD Specimen: Skin, right chest 12:36 PM CDT DERMATOPATHOLOGY LABORATORY Final Diagnosis Specimen A. SKIN, right chest: BASAL CELL CARCINOMA, NODULAR TYPE (C44.519) 12:36 PM CDT DERMATOPATHOLOGY LABORATORY at 1236 CDT Clinical History BCC 12:36 PM CDT DERMATOPATHOLOGY LABORATORY Gross Description Specimen A: Received is one formalin filled container labeled with the patient's name and designated right chest. The specimen consists of a shave biopsy measuring 17i16b9 mm. Jar 0. 12:36 PM CDT DERMATOPATHOLOGY LABORATORY Microscopic Description Specimen A. SKIN, right chest: Within the dermis there are aggregates of basaloid cells with a high nuclear to cytoplasmic ratio and peripheral palisading. 12:36 PM CDT DERMATOPATHOLOGY LABORATORY Disclaimer An external and internal positive and negative controls are appropriate for the histochemical, immunohistochemical and immunofluorescence stain(s) in this case (if any), except where stated explicitly. The performance characteristics of the stain(s) cited in this report were developed and its performance characteristic determined by the Dermatopathology Laboratory at [facility], directed by Dr. Vick Winters. These tests need not be, and therefore are not, approved by the [place] Food and Drug Administration. The tests are used for clinical purposes. Billing Codes Specimen Charges Stain Charges 14076 1 12:36 PM CDT DERMATOPATHOLOGY LABORATORY Embedded Images 12:36 PM CDT DERMATOPATHOLOGY LABORATORY Pathology/Cytolo gy TISSUE SPECIMEN FROM SKIN / Unknown 10/09/2024 11:18 AM CDT 10/14/2024 7:06 AM CDT [facility] - PATHOLOGY/CYTOLOGY OR DERABLES Final Result DERMATOPATHOLOGY LABORATORY [facility] - Department of Dermatology [address], [address] [phone] documented in this encounter Visit Diagnoses Diagnosis Neoplasm of uncertain behavior of skin documented in this encounter
[2025-03-19 11:18] LABS: Add Urine Microscopic? NO; Appearance Urine Clear (Clear); Glucose Urine UA Negative (Negative); Leukocyte Esterase Ur Negative LEU/UL (Negative); Nitrate Urine Negative (Negative); Specific Grav Ur 1.018 (1.001-1.035)
[2025-03-19 11:30] LABS: Hematocrit 41.0 % (42.0-52.0); Hemoglobin 13.1 g/dL (14.0-18.0); Immature Granulocyte Percent A 0.3 % (0-0.5); Lymphocytes Absolute Auto 1.93 K/mm3 (0.9-3.2); Mean Corpuscular HGB Conc 32.0 g/dl (32-36); Mean Corpuscular Hemoglobin 30.8 pg (26-34); Mean Corpuscular Volume 96.2 fl (80-100); Nucleated Red Blood Cells Absolute Auto 0.000 K/mm3 (0.0-0.012); Nucleated Red Blood Cells Perc 0.0 % (0.0-0.2); Platelet Count Result 203 k/mm3 (150-375); Red Blood Count 4.26 M/mm3 (4.6-6.20); White Blood Count 6.5 K/mm3 (4.5-10.0)
[2025-03-19 11:48] LABS: INR 1.1; Prothrombin Time 14.3 Seconds (11.1-14.7)
[2025-03-19 11:49] LABS: Partial Thromboplastin Time 32.4 Seconds (22.3-36.8)
[2025-03-19 11:51] LABS: Hemoglobin A1C 5.2 % (<5.7)
[2025-03-19 11:55] LABS: Alanine Aminotransferase 53 U/L (6-50); Albumin Level 4.4 g/dL (3.5-5.1); Alkaline Phosphatase 107 U/L (38-126); Anion Gap 8 mmol/L (4-12); Aspartate Amino Transferase 26 U/L (17-59); Bilirubin,Total 0.5 mg/dL (0.2-1.3); Blood Urea Nitrogen 50 mg/dL (9-20); CRP < 0.5 mg/dL (<1.0); Calcium 9.5 mg/dL (8.4-10.2); Carbon Dioxide 22 mmol/L (22-30); Chloride 107 mmol/L (98-107); Estimated Glomerular Filt Rate 37; Glucose 100 mg/dL (65-110); Potassium 6.2 mmol/L (3.4-5.0); Sodium 137 mmol/L (137-145); Total Protein 7.3 g/dL (6.3-8.2)
[2025-03-19 12:32] LABS: MRSA (PCR) NOT DETECTED (NOT DETECTE)
== END 2025-03-19 09:55 | disposition home or self-care (01) ==
LOC: ANHSURGERY 10:02
PROVIDERS: Visit Provider Orthopaedic Surgery
DX: Z01.818 Encounter for other preprocedural examination (principal); M25.562 Pain in left knee
CPT/HCPCS: 80053; 80307; 81003; 83036; 85025; 85610; 85730; 86140; 87641

== ENCOUNTER 2025-03-19 12:56 | Inpatient (IN) | payer MEDICARE, SELFPAY ==
--- OUTSIDE RECORDS SUMMARY | 2024-10-09 04:31 | XMS_ITS | Continuity of Care Document ---
Author Organization [facility], L TD Address [address] [place] [address] Phone Care Team Providers Care Tow Car Driver Name Role Phone Bam Murcia MD Unavailable [...] Diagnoses Date Provider Providers Copied on Encounter [facility], [address] [place] [address], [id number] , tel: [phone] [facility] No Information 5 Divina Kuhn. [address] [place] [address], [id number] , [place]. tel: [phone] [address], [id number] , [place] tel: [phone] [facility] vision exam OU with f/u IOL OU, PCO OU, and Refractive (chief complaint) Other secondary cataract, bilateralPresence of intraocular lensHypermetropia , bilateralRegular astigmatism, bilateralPresbyop ia 5 Divina Kuhn. [address] [place] [address], [id number] , [place]. tel: [phone] Referring Provider: Bam Tomas, [address] [place] [address], [id number] . tel:[phone] [facility], [address] [place] [address], [id number] , [place] tel: [phone] [facility] f/u PCO OS, IOL OU and Refractive Error OU (chief complaint) Presence of intraocular lensHypermetropia , bilateralRegular astigmatism, bilateralPresbyop iaOther secondary cataract, bilateral 4 Divina Kuhn. [address] [place] [address], [id number] , [place]. tel: [phone] Referring Provider: Bam Tomas, [address] [place] [address], [id number] . tel:[phone], [id number] , [place] tel: [phone] [facility] f/u IOL OU and Ref Err OU. (chief complaint) Presence of intraocular lensHypermetropia , bilateralRegular astigmatism, bilateralPresbyop iaOther secondary cataract, left eye Jul-0 3 Divina Kuhn. [address] [place] [address], [id number] , [place]. tel: [phone] Referring Provider: Bam Tomas, [address] [place] [address], [id number] . tel:[phone] [facility], [address] [place] [address], [id number] , [place] tel: [phone] [facility] vision has improved (chief complaint) Cataract extraction status, left eyeCataract extraction status, right eyePresence of intraocular lensPresbyopiaReg ular astigmatism, bilateralHypermet ropia, bilateral Mar- 2 Divina Kuhn. [address] [place] [address], [id number] , [place]. tel: [phone] [facility], [address] [place] [address], [id number] , [place] tel: [phone] [facility] Post-op cataract surgery (chief complaint) Cataract extraction status, left eye 2 Divina Kuhn. [address] [place] [address], [id number] , [place]. tel: [phone] Referring Provider: Bam Tomas, [address] [place] [address], [id number] . tel:[phone] [facility], [address] [place] [address], [id number] , [place] tel: [phone] [facility], [facility] No Information 2 Divina Kuhn. [address] [place] [address], [id number] , [place]. tel: [phone] [facility], [address] [place] [address], [id number] , [place] tel: [phone] [facility] No Information 2 Divina Kuhn. [address] [place] [address], [id number] , [place]. tel: [phone] Referring Provider: Bam Tomas, [address] [place] [address], [id number] . tel:[phone] [facility], [address] [place] [address], [id number] , [place] tel: [phone] [facility] Post-op cataract surgery (chief complaint) Cataract extraction status, right eye 2 Divina Kuhn. [address] [place] [address], [id number] , [place]. tel: [phone] [facility], [address] [place] [address], [id number] , [place] tel: [phone] [facility], [facility] No Information 2 Divina Kuhn. [address] [place] [address], [id number] , [place]. tel: [phone] [facility], [address] [place] [address], [id number] , tel: [phone] [facility] trouble reading and driving (chief complaint) PresbyopiaHyperme tropia, bilateralRegular astigmatism, right eye 2 Divina Kuhn. [address] [place] [address], [id number] , [place]. tel: [phone] Family History Family Member Type Diagnosis Age At Onset Mother Problem degenerative disorder of mac flaquito Problem No family history of Diabete s mellitus Father Problem Hypertension Problem No family history of Catarac ts Problem No family history of Glaucom a Payers Payer name Insurance type Covered libertarian ID Authoriza tion(s) No Information Social History [...]
[2025-03-19] VITALS (14 sets, daily range): BP systolic 141–191; BP diastolic 60–90; PULSE 62–105; RESP 13–20; TEMP 36.4–36.5; O2SAT 97–99; BMI 28.4
--- NOTE | 2025-03-19 13:07 | ECG_ITS ---
Test Date: 2025-03-19 13:11:22 Measurements Intervals Martin Rate: 67 P: 50 IN: 193 QRS: -60 QRSD: 145 T: 78 QT: 405 QTc: 428 Interpretive Statements ATRIAL SENSE- ELECTRONIC VENTRICULAR PACEMAKER BASELINE ARTIFACT- I, III, AVR, AVL, AVF, V1-V2, V6 NO FURTHER INTERPRETATION IS POSSIBLE ATYPICAL ECG No previous ECG available for comparison Electronically Signed On 03-19-2025 13:23:28 CDT by Nicholas Estrada D.O.
[2025-03-19 13:26] LABS: Hematocrit 41.1 % (42.0-52.0); Hemoglobin 13.2 g/dL (14.0-18.0); Immature Granulocyte Percent A 0.2 % (0-0.5); Lymphocytes Absolute Auto 2.17 K/mm3 (0.9-3.2); Mean Corpuscular HGB Conc 32.1 g/dl (32-36); Mean Corpuscular Hemoglobin 31.1 pg (26-34); Mean Corpuscular Volume 96.7 fl (80-100); Nucleated Red Blood Cells Absolute Auto 0.000 K/mm3 (0.0-0.012); Nucleated Red Blood Cells Perc 0.0 % (0.0-0.2); Platelet Count Result 192 k/mm3 (150-375); Red Blood Count 4.25 M/mm3 (4.6-6.20); White Blood Count 6.1 K/mm3 (4.5-10.0)
--- OUTSIDE RECORDS SUMMARY | 2025-03-19 13:34 | XMS_ITS | Clinical Summary ---
Author Organization [facility] Address [address] [place] [address] Care Team Providers Care Fabrication And Layout Craftsman Name Role Phone Unavailable Primary Care Provider Unavailabl e Source Comments [facility],non-owned Affiliates and Associated Physician Practices is amultiple site organization consisting of ambulatory clinics and hospital sitesin [place], [place], [place] and [place]. This disclosure is being madepursuant to the Care Everywhere program and may not contain all information available regarding this patient. Last updated 18.[facility] Social History Tobacco Use Types Packs/Day Years [...]
--- OUTSIDE RECORDS SUMMARY | 2025-03-19 13:34 | XMS_ITS | Clinical Summary ---
Author Organization [facility] [address] [place] Address [address] [place] [phone] Care Team Providers Care Owner Operator Tanker Truck Driver Name Role Phone Ollie Moya MD Primary Care Provider [phone] Allergies Active Allergy Reactions Criticality Noted Date [...] on file Legal Sex Male 8:07 PM GRANTS SPECIALIST Gender Identity Not on file Sexual Orientation [...] 10/07/2027 10/06/2017 Insurance MEDIC[place] [address] Care Teams Owner Operator Tanker Truck Driver Relationship Specialty Start Date End Date Ollie Moya MD [address] [place] [address] PCP - General Orthopedic Surgery 01/08/23
--- OUTSIDE RECORDS SUMMARY | 2025-03-19 13:34 | XMS_ITS | Encounter Summary ---
Author Organization [facility] Address [address] [facility] [place] [address] Care Team Providers Care Resident Services Supervisor Name Role Phone Unavailable Primary Care Provider Unavailabl e Encounter Details Date Type Department Care Team (Late st Contact Info) Description 10/09/2024 Lab Requisition [facility] - DermPath Lab [address] [facility] [place] [phone] Claire Hammond PA [address] [place] [phone] Neoplasm of uncertain behavior of skin Social [...] AM CDT) Case Report Dermatopathology Report Case: [id number] Authorizing Provider: Claire Hammond PA Collected: 10/09/2024 11:18 AM Ordering Location: [facility] Physician [facility] - Received: 10/14/2024 07:06 AM DermPath Lab [...] specimen consists of a shave biopsy measuring [id number] mm. Jar 0. 12:36 PM CDT DERMATOPATHOLOGY [...] characteristic determined by the Dermatopathology Laboratory at [facility], directed by Dr. Vick Winters. These tests need not be, and therefore are not, approved by the [place] Food and Drug Administration. The tests are used for clinical purposes. Billing Codes Specimen Charges Stain Charges 96848 1 12:36 PM CDT DERMATOPATHOLOGY LABORATORY Embedded Images 12:36 PM CDT DERMATOPATHOLOGY LABORATORY Pathology/Cytolo gy TISSUE SPECIMEN FROM SKIN / Unknown 10/09/2024 11:18 AM CDT 10/14/2024 7:06 AM CDT [facility] - PATHOLOGY/CYTOLOGY OR DERABLES Final Result DERMATOPATHOLOGY LABORATORY [facility] - Department of Dermatology [address] [place] [address] [phone] documented in this encounter Visit Diagnoses Diagnosis Neoplasm of uncertain behavior of skin documented in this encounter
--- NOTE | 2025-03-19 13:38 | ED.GENADULT ---
HPI - General Adult General Chief complaint: Recheck/Abnormal Lab/Rx Stated complaint: sent for abnormal Potassium level Time Seen by Provider: 03/19/25 13:38 Source: patient Mode of arrival: ambulatory Limitations: no limitations History of Present Illness HPI narrative: 85 YEARS OLD WHITE MALE REFERRED TO OUR EMERGENCY ROOM BY HIS FAMILY PHYSICIAN BECAUSE OF ELEVATED POTASSIUM ON BLOOD WORKUP THIS MORNING. 6.2. PATIENT WAS SEEN BY HIS FAMILY PHYSICIAN TODAY FOR PRE OF LEFT KNEE SURGERY NEXT. GUNNAR BLOOD WORKUP SHOWED POTASSIUM 6.2. PATIENT IS ASYMPTOMATIC. HISTORY OF HYPERTENSION AND COLOSTOMY. PATIENT IS NOT POTASSIUM SUPPLEMENT. Related Data Home Medications ?Medication ?Instructions ?Recorded ?Confirmed ?Last Taken ?Type multivitamin with minerals 1 tablet PO DAILY 03/05/23 03/19/25 03/19/23 History lisinopril 20 mg tablet 40 mg PO DAILY 03/26/24 03/19/25 Unknown History acetaminophen 500 mg tablet 1,000 mg PO Q6H PRN pain 03/19/25 03/19/25 Unknown History (Acetaminophen Extra Strength) apixaban 5 mg tablet (Eliquis) 5 mg PO Q12H 03/19/25 03/19/25 Unknown History ibuprofen 125 mg-acetaminophen 250 1 tablet PO ONCE PRN pain 03/19/25 03/19/25 Unknown History mg tablet Allergies Allergy/AdvReac Type Severity Reaction Status Date / Time oxycodone AdvReac Nausea and Verified 03/19/25 10:08 Vomiting Review of Systems Review of Systems: All systems reviewed & are unremarkable except as noted in HPI and below PMFSH Past Medical History Medical History Single seizure (2007) Colon cancer (2010) Status post colon resection and chemoradiation. Osteoarthritis of both knees Surgical History Surgical History History of bilateral cataract extraction History of arthroplasty of right knee (03/26/23) Per Dr. Moya History of colon resection (2010) Family History Family History Father Cerebrovascular accident Other Family history non-contributory Social History Social History Social History: Surrogate medical decision maker: Ana Hurtadomond, spouse. Code status: Full code. Smoking packs per day: 2 Smoking cigarettes per day: 40.0 Years smoked: 20 Smoking pack-years: 40.00 Smoking status: Former smoker Tobacco type: cigarettes Smoking end date: 05/21/84 Additional smoking assessment comments: Denies Nicotine Alcohol intake: former Drinks per week: 21 Alcohol use details: last drink 03/03/25 Substance use: never Substance use type: does not use Current Housing: Decline to Answer Concerned About Future Housing: Decline to Answer Difficulty Paying Gas/Electric Bills: Decline to Answer Difficulty Paying for Meds: Decline to Answer Currently Unemployed: Decline to Answer Education: Decline to Answer Difficulty w/ Childcare or Family Care: Decline to Answer Living arrangements: with family Additional living arrangements comments: Occupation/Education: retired Spiritual care concerns: No Exam Narrative: GENERAL APPEARANCE: WELL-DEVELOPED, WELL-NOURISHED SKIN: NORMAL COLOR HEAD: NORMOCEPHALIC, NONTRAUMATIC EYES: CLEAR CONJUNCTIVA ENT: OROPHARYNX NORMAL, EARS NORMAL, NOSE NORMAL NECK: SUPPLE, NONTENDER CHEST AND RESPIRATORY: AIRWAY PATENT, NO RESPIRATORY DISTRESS, NO ACCESSORY MUSCLE USE HEART: REGULAR RATE/RHYTHM ABDOMEN: SOFT, NONTENDER, NO ORGANOMEGALY, QUIET BOWEL SOUNDS, COLOSTOMY BAG IN PLACE VASCULAR: NORMAL PERIPHERAL PULSES, NORMAL CAPILLARY REFILL. MUSCULOSKELETAL: NORMAL RANGE OF MOTION, NONTENDER BACK NEUROLOGIC: ALERT AND ORIENTED ?3, SLINGER SEQUINS IS NORMAL TESTED, NO GROSS MOTOR DEFICIT Course Vital Signs Vital signs: Vital Signs Temperature 36.4 C 03/19/25 13:03 Pulse Rate 62 03/19/25 13:03 Respiratory Rate 18 03/19/25 13:03 Blood Pressure 191/66 H 03/19/25 13:03 Pulse Oximetry 99 03/19/25 13:03 Oxygen Delivery Room Air 03/19/25 13:03 Temperature 36.4 C 03/19/25 13:03 Pulse Rate 71 03/19/25 13:35 Respiratory Rate 18 03/19/25 13:35 Blood Pressure 185/77 H 03/19/25 13:35 Pulse Oximetry 98 03/19/25 13:35 Oxygen Delivery Room Air 03/19/25 13:35 Medical Decision Making MDM Narrative Medical decision making narrative: PRE UP WORKUP TODAY FOR LEFT KNEE SURGERY NEXT MONTHS SHOWED HYPERKALEMIA 6.2 PATIENT IS ASYMPTOMATIC VITAL SIGNS SHOWING BLOOD PRESSURE 191/66 OTHERWISE WITHIN NORMAL LIMIT PHYSICAL EXAMINATION IS UNREMARKABLE REPEATED BLOOD WORKUP SHOWING POTASSIUM 5.8, CREATININE 1.9 WHICH IS HIGH COMPARED TO THE PREVIOUS READING FEW DAYS AGO. ADMIT TO HOSPITALIST DIAGNOSIS HYPERKALEMIA, ANNA. Differential Diagnosis Differential Diagnosis: ELECTROLYTE IMBALANCE, DEHYDRATION Vital Signs Vital Signs: Vital Signs Temperature 36.4 C 03/19/25 13:03 Pulse Rate 62 03/19/25 13:03 Respiratory Rate 18 03/19/25 13:03 Blood Pressure 191/66 H 03/19/25 13:03 Pulse Oximetry 99 03/19/25 13:03 Oxygen Delivery Room Air 03/19/25 13:03 Temperature 36.4 C 03/19/25 13:03 Pulse Rate 71 03/19/25 13:35 Respiratory Rate 18 03/19/25 13:35 Blood Pressure 185/77 H 03/19/25 13:35 Pulse Oximetry 98 03/19/25 13:35 Oxygen Delivery Room Air 03/19/25 13:35 Lab Data 03/19/25 13:21 03/19/25 13:21 Labs: Lab Results 03/19/25 Range/Units 13:21 WBC 6.1 (4.5-10.0) K/mm3 RBC 4.25 L (4.6-6.20) M/mm3 Hgb 13.2 L (14.0-18.0) g/dL Hct 41.1 L (42.0-52.0) % MCV 96.7 (80-100) fl MCH 31.1 (26-34) pg MCHC 32.1 (32-36) g/dl RDW 12.1 (11.5-14.5) % Plt Count 192 (150-375) k/mm3 MPV 9.9 (7.4-10.4) fl Immature Gran % (Auto) 0.2 (0-0.5) % Neut % (Auto) 52.9 (45.5-73.1) % Lymph % (Auto) 35.5 (18.3-44.2) % Brule % (Auto) 9.3 H (2.6-8.5) % Eos % (Auto) 1.3 (0-4.4) % Baso % (Auto) 0.8 (0.2-1.2) % Lymph # (Auto) 2.17 (0.9-3.2) K/mm3 Brule # (Auto) 0.6 (0.1-0.6) K/mm3 Eos # (Auto) 0.1 (0-0.3) K/mm3 Baso # (Auto) 0.1 (0.0-0.1) K/mm3 Abs Immat Gran (auto) 0.01 (0.00-0.031) K/mm3 Absolute Neuts (auto) 3.2 (1.3-6.7) K/mm3 Absolute Nucleated RBC 0.000 (0.0-0.012) K/mm3 Nucleated RBC % 0.0 (0.0-0.2) % Sodium 137 (137-145) mmol/L Potassium 5.8 H (3.4-5.0) mmol/L Chloride 107 (98-107) mmol/L Carbon Dioxide 23 (22-30) mmol/L Anion Gap 7 (4-12) mmol/L BUN 52 H (9-20) mg/dL Creatinine 1.90 H (0.7-1.3) mg/dL Estim Creat Clear Calc 28 ml/min Estimated GFR 34 L (59 - ) Glucose 113 H (65-110) mg/dL Calcium 9.6 (8.4-10.2) mg/dL Total Bilirubin 0.4 (0.2-1.3) mg/dL AST 27 (17-59) U/L ALT 54 H (6-50) U/L Alkaline Phosphatase 106 (38-126) U/L Total Protein 7.3 (6.3-8.2) g/dL Albumin 4.3 (3.5-5.1) g/dL Critical Care Time Critical Care Time Critical Care Time: No Discharge Plan Discharge Clinical Impression: Acute hyperkalemia, ANNA (acute kidney injury) Patient Disposition: Still a Patient Condition: Stable Patient Language: Mosotho Prescriptions: No Action lisinopril 20 mg tablet 40 mg PO DAILY multivitamin with minerals Tablet 1 tablet PO DAILY famotidine 20 mg Tablet 20 mg PO Q12HR Qty: 60 0RF Eliquis 5 mg tablet 5 mg PO Q12H Patient Comments: HOLD FOR 48hrs prior per Dr Quintero/ ibuprofen-acetaminophen 125-250 mg tablet 1 tablet PO ONCE PRN (Reason: pain) Patient Comments: HOLD 7 days prior w NSAID acetaminophen [Acetaminophen Extra Strength] 500 mg tablet 1,000 mg PO Q6H PRN (Reason: pain) Follow-up/Referrals: PHYSICIAN NOT ON STAFF,NONSTAFF [Primary Care Provider]
[2025-03-19 13:45] LABS: Alanine Aminotransferase 54 U/L (6-50); Albumin Level 4.3 g/dL (3.5-5.1); Alkaline Phosphatase 106 U/L (38-126); Anion Gap 7 mmol/L (4-12); Aspartate Amino Transferase 27 U/L (17-59); Bilirubin,Total 0.4 mg/dL (0.2-1.3); Blood Urea Nitrogen 52 mg/dL (9-20); Calcium 9.6 mg/dL (8.4-10.2); Carbon Dioxide 23 mmol/L (22-30); Chloride 107 mmol/L (98-107); Estimated CRCL calculation 28 ml/min; Estimated Glomerular Filt Rate 34; Glucose 113 mg/dL (65-110); Potassium 5.8 mmol/L (3.4-5.0); Sodium 137 mmol/L (137-145); Total Protein 7.3 g/dL (6.3-8.2)
[2025-03-19] MEDS: SODIUM CHLORIDE 0.9% IV 1,000 ML 999 ML IV CONT (14:10)
[2025-03-19] MEDS: DEXTROSE 50% 25 GM/50 ML SYRINGE IV PUSH (14:10)
[2025-03-19] MEDS: INSULIN HUMAN REGULAR (*BKC) 100 UNITS/ML 10 UNITS IV PUSH (14:11)
--- OUTSIDE RECORDS SUMMARY | 2025-03-19 14:27 | XMS_ITS | Clinical Summary ---
Author Organization [facility] [address] [place] Address [address] [place] [phone] Care Team Providers Care Edm Operator Name Role Phone Ollie Moya MD Primary Care Provider [phone] Allergies Active Allergy Reactions Criticality Noted Date [...] on file Legal Sex Male 8:07 PM RECORDS SPECIALIST Gender Identity Not on file Sexual [...] Insurance MEDICARE [employer] SENIOR SUPPLEMENT Care Teams Edm Operator Relationship Specialty Start Date End Date Ollie Moya MD [address] [place] [address] PCP - General Orthopedic Surgery 01/08/23
--- OUTSIDE RECORDS SUMMARY | 2025-03-19 14:27 | XMS_ITS | Clinical Summary ---
Author Organization [facility] Address [address] [facility] [place] [address] Care Team Providers Care Canvas Goods Fabricator Name Role Phone Unavailable Primary Care Provider Unavailabl e Source Comments [facility] [employer],non-owned Affiliates and Associated Physician Practices is amultiple site organization consisting of ambulatory clinics and hospital sitesin [place], [place], [place] and [place]. This disclosure is being madepursuant to the Care Everywhere program and may not contain all information available regarding this patient. Last updated 18.[facility] Social History Tobacco Use Types Packs/Day Years [...]
--- OUTSIDE RECORDS SUMMARY | 2025-03-19 14:27 | XMS_ITS | Encounter Summary ---
Author Organization [facility] Address [address] [facility] [place] [address] Care Team Providers Care Collections Assistant Name Role Phone Unavailable Primary Care Provider Unavailabl e Encounter Details Date Type Department Care Team (Late st Contact Info) Description 10/09/2024 Lab Requisition [facility] - DermPath Lab [address] [facility] [place] [phone] Claire Hammond PA [address] [place] [phone] Neoplasm of uncertain behavior of skin Social [...] AM CDT) Case Report Dermatopathology Report Case: [id number] Authorizing Provider: Claire Hammond PA Collected: 10/09/2024 11:18 AM Ordering Location: [facility] Physician [facility] - Received: 10/14/2024 07:06 AM DermPath Lab [...] specimen consists of a shave biopsy measuring 46h33i4 mm. Jar 0. 12:36 PM CDT DERMATOPATHOLOGY [...] characteristic determined by the Dermatopathology Laboratory at [facility], directed by Dr. Vick Winters. These tests need not be, and therefore are not, approved by the [place] Food and Drug Administration. The tests are used for clinical purposes. Billing Codes Specimen Charges Stain Charges 43661 1 12:36 PM CDT DERMATOPATHOLOGY LABORATORY Embedded Images 12:36 PM CDT DERMATOPATHOLOGY LABORATORY Pathology/Cytolo gy TISSUE SPECIMEN FROM SKIN / Unknown 10/09/2024 11:18 AM CDT 10/14/2024 7:06 AM CDT [facility] - PATHOLOGY/CYTOLOGY OR DERABLES Final Result DERMATOPATHOLOGY LABORATORY [facility] - Department of Dermatology [address] [phone] documented in this encounter Visit Diagnoses Diagnosis Neoplasm of uncertain behavior of skin documented in this encounter
[2025-03-19 14:28] LABS: Magnesium 2.1 mg/dL (1.6-2.3)
[2025-03-19 16:05] LABS: Anion Gap 9 mmol/L (4-12); Blood Urea Nitrogen 49 mg/dL (9-20); Calcium 9.1 mg/dL (8.4-10.2); Carbon Dioxide 17 mmol/L (22-30); Chloride 111 mmol/L (98-107); Estimated CRCL calculation 29 ml/min; Estimated Glomerular Filt Rate 35; Glucose 78 mg/dL (65-110); Potassium 5.2 mmol/L (3.4-5.0); Sodium 137 mmol/L (137-145)
[2025-03-19] MEDS: SODIUM CHLORIDE 0.9% IV 1,000 ML 125 ML IV CONT (17:11)
[2025-03-20] VITALS (11 sets, daily range): BP systolic 147–167; BP diastolic 58–82; PULSE 60–95; RESP 14–20; TEMP 36.4–36.9; O2SAT 95–100
--- NOTE | 2025-03-20 | PM.IMHP ---
H&P: HPI History of Present Illness Date/Time: 03/19/25 2300 Chief Complaint: Abnormal labs Narrative: This is an 85-year-old male patient who has a history of colon cancer with colostomy. The patient had routine labs performed today for preop for left knee surgery. Is in the patient's potassium was noted to be 6.2 and he was sent to the emergency room. The patient denies taking any potassium supplements. Repeat potassium was noted to be 5.2. His BUN 50 creatinine 1.77. His GFR is noted to be 35. H&H was 13.2 and 41.1. The patient was given labetalol, D50, regular insulin, and normal saline in the emergency room. The patient is being admitted to observation status on the date of service of 03/19/2025 Review of Systems Constitutional: Constitutional: Reports as per HPI and Reports no additional constitutional complaints Eyes: Eyes: Reports as per HPI and Reports no additional eye complaints ENT: Reports system reviewed and no additional complaints, except as documented and Reports Normal hearing present Cardiovascular: Cardiovascular: Reports no additional cardiovascular complaints Respiratory: Respiratory: Reports as per HPI and Reports no additional respiratory complaints Gastrointestinal: Gastrointestinal: Reports as per HPI and Reports no additional gastrointestinal complaints Musculoskeletal: Musculoskeletal: Reports no additional musculoskeletal complaints Integumentary/Breasts: Skin/Breast: Reports system reviewed and no additional complaints, except as docu Neurologic: Reports system reviewed and no additional complaints, except as documented and Reports Normal hearing present Psychiatric: Psychiatric: Reports no additional psychiatric complaints and Reports as per HPI Hematologic/Lymphatic: Hematologic/Lymphatic: Reports no additional hematologic/lymphatic complaints Allergic/Immunologic: Allergic/Immunologic: Reports no additional allergic/immunologic complaints [facility] Past Medical History Medical History (Updated 03/20/25 @ 00:11 by Radhika Stock APRN) Colostomy in place Aortic valve insufficiency Cardiac pacemaker in situ Hypertension Single seizure (2007) Colon cancer (2010) Status post colon resection and chemoradiation. Osteoarthritis of both knees Surgical History Surgical History (Updated 03/20/25 @ 00:11 by Radhika Stock APRN) History of bilateral cataract extraction History of arthroplasty of right knee (03/26/23) Per Dr. Moya History of colon resection (2010) He has a colostomy Family History Family History Father Cerebrovascular accident Other Family history non-contributory Social History Social History (Updated 03/20/25 @ 00:12 by Radhika Stock APRN) Social History: He is lives with his and has 2 children. Surrogate medical decision maker: Ana Hazel, spouse. Code status: Full code. Smoking packs per day: 2 Smoking cigarettes per day: 40.0 Years smoked: 20 Smoking pack-years: 40.00 Smoking status: Former smoker Additional smoking assessment comments: Denies Nicotine Alcohol intake: former Drinks per week: 21 Alcohol use details: last drink 03/03/25 Substance use: never Substance use type: does not use Lack of Transportation: No Lack of Food: Never True Current Housing: Decline to Answer Concerned About Future Housing: Decline to Answer Difficulty Paying Gas/Electric Bills: Decline to Answer Difficulty Paying for Meds: Decline to Answer Currently Unemployed: Decline to Answer Education: Decline to Answer Difficulty w/ Childcare or Family Care: Decline to Answer Living arrangements: with family Additional living arrangements comments: Occupation/Education: retired Spiritual care concerns: No Meds Home Medications and Allergies Home Medications ?Medication ?Instructions ?Recorded ?Confirmed ?Type multivitamin with minerals 1 tablet PO DAILY 03/05/23 03/19/25 History lisinopril 20 mg tablet 40 mg PO DAILY 03/26/24 03/19/25 History acetaminophen 500 mg tablet 1,000 mg PO Q6H PRN pain 03/19/25 03/19/25 History (Acetaminophen Extra Strength) apixaban 5 mg tablet (Eliquis) 5 mg PO Q12H 03/19/25 03/19/25 History glucosamine 375 oa-nefbphode-pbm 1 tablet PO DAILY 03/19/25 03/19/25 History no1 500 mg-C 15 mg-samy 0.5 mg tablet (Uvkbbimeycj-Ppiztiqyvas-PXA Complex) ibuprofen 125 mg-acetaminophen 250 1 tablet PO ONCE PRN pain 03/19/25 03/19/25 History mg tablet lutein 20 mg capsule 20 mg PO DAILY 03/19/25 03/19/25 History Allergies Allergy/AdvReac Type Severity Reaction Status Date / Time oxycodone AdvReac Nausea and Verified 03/19/25 15:21 Vomiting Vital Signs Vital Signs - 24 hr 03/19/25 13:03 03/19/25 13:35 03/19/25 13:35 Temperature 97.6 F Pulse Rate 62 71 71 Respiratory Rate 18 18 18 Blood Pressure 191/66 H 185/77 H 185/77 H Pulse Oximetry 99 98 99 Oxygen Delivery Room Air Room Air Fraction of Inspired Oxygen 03/19/25 13:46 03/19/25 14:02 03/19/25 14:11 Temperature Pulse Rate 78 66 63 Respiratory Rate 20 13 17 Blood Pressure 185/85 H 159/90 H 177/74 H Pulse Oximetry 99 99 99 Oxygen Delivery Fraction of Inspired Oxygen 03/19/25 14:16 03/19/25 14:31 03/19/25 14:40 Temperature Pulse Rate 71 86 77 Respiratory Rate 15 20 Blood Pressure 155/70 H 176/87 H Pulse Oximetry 98 98 Oxygen Delivery Fraction of Inspired Oxygen 03/19/25 14:46 03/19/25 15:01 03/19/25 15:53 Temperature Pulse Rate 68 71 Respiratory Rate 16 18 Blood Pressure 172/60 H 141/83 H Pulse Oximetry 98 98 Oxygen Delivery Room Air Fraction of Inspired Oxygen 03/19/25 16:00 03/19/25 20:00 03/19/25 21:10 Temperature Pulse Rate 80 105 H 69 Respiratory Rate Blood Pressure Pulse Oximetry 97 Oxygen Delivery Room Air Fraction of Inspired Oxygen 21 03/19/25 21:36 03/19/25 22:00 Temperature 97.7 F Pulse Rate 69 Respiratory Rate 18 Blood Pressure 182/62 H Pulse Oximetry 97 Oxygen Delivery Room Air Fraction of Inspired Oxygen Exam Const: General: cooperative, healthy appearing, comfortable, no acute distress, well developed, awake, Physically active, average body habitus and well nourished Nutritional Appearance: average body habitus and well nourished Orientation/consciousness: oriented to person, oriented to place, oriented to time and patient oriented x3 Limitations: no limitations HENMT: Head: normal to inspection, No palpable skull fracture present, normocephalic, atraumatic and abrasion Ears: hearing grossly normal bilaterally and external ears normal Face/Nose/Sinus: Normal external nose present Eyes: General: appearance normal, both eyes and all related structures Alignment and Position: alignment normal Periorbital: periorbital findings normal Eyelids: eyelids normal Sclera: sclerae normal Neck: Neck: normal visual inspection, full ROM, no lymphadenopathy, trachea midline and supple Chest: Chest palpation & inspection: normal inspection of the chest Resp: Effort & Inspection: normal respiratory effort Auscultation: clear to auscultation bilaterally Percussion: percussion normal Cardio: Palpation: normal PMI Rate: regular rate Rhythm: regular rhythm Heart sounds: S1 normal heart sound present and S2 normal heart sound present Peripheral pulses: Peripheral pulses 2+ throughout GI: Inspection: normal to inspection Percussion: Yes normal to percussion Auscultation: normal bowel sounds Rectal Exam: deferred : General: Yes no CVA tenderness Back/Spine/Pelvis: Back: no CVA tenderness Cervical Spine: cervical ROM normal Thoracic/Lumbar Spine: thoracic and lumbar spine normal to inspection Pelvis: no pain with anterior-posterior compression Skin: General skin exam: normal color Lesions: no lesions Rashes: no rashes Trauma: no lacerations or abrasions Wounds: no wounds Hair: normal Nails: normal Neuro: General: oriented to person, oriented to place, oriented to time and patient oriented x3 Cranial nerves: Yes Equal, round and reactive pupils present and Yes Normal hearing present Cognition (Neuro): normal cognition Speech: normal speech Gait exam (Neuro): Normal gait present Motor exam (neuro): 5/5 motor strength present throughout Sensory Exam: normal sensation Extrem: General: normal to inspection Right upper extremity: normal to inspection and shoulder/upper arm Left upper extremity: normal to inspection and shoulder/upper arm Right lower extremity: normal to inspection Left lower extremity: normal to inspection Psych: Appearance: grossly normal Mental Status: mental status grossly normal Speech and movement: Normal speech and movement present Affect: normal affect Attitude: cooperative Thought process: Normal thought process present Thought content: Yes Normal thought content present Insight: Good insight present (Psych) Judgement: Good judgement present (Psych) H&P: Results Labs Labs: Short CBC 03/19/25 Range/Units 13:21 WBC 6.1 (4.5-10.0) K/mm3 Hgb 13.2 L (14.0-18.0) g/dL Hct 41.1 L (42.0-52.0) % Plt Count 192 (150-375) k/mm3 BMP 03/19/25 03/19/25 13:21 15:47 Sodium 137 137 Potassium 5.8 H 5.2 H Chloride 107 111 H Carbon Dioxide 23 17 L BUN 52 H 49 H Creatinine 1.90 H 1.83 H Glucose 113 H 78 Calcium 9.6 9.1 Liver Function 03/19/25 Range/Units 13:21 Total Bilirubin 0.4 (0.2-1.3) mg/dL AST 27 (17-59) U/L ALT 54 H (6-50) U/L Alkaline Phosphatase 106 (38-126) U/L Albumin 4.3 (3.5-5.1) g/dL ECG Interpretation: EKG was performed at an outside facility which shows atrial pacemaker. Assessment and Plan Assessment and plan (1) ANNA (acute kidney injury): Code(s): N17.9 - Acute kidney failure, unspecified Status: Acute Assessment and Plan: -could be related to his lisinopril which is currently on hold. -could be related to dehydration. -his BUN was 50 upon arrival today. His previous BUN was 0226 on 03/27/2023 -creatinine was 1.77 with a previous 1.2 on 03/27/2023. His GFR is 37 today with a previous GFR 58 on 03/27/2023. I have no recent labs for comparison. Patient had preop labs drawn earlier today. - Nsaid use? (2) Acute hyperkalemia: Code(s): E87.5 - Hyperkalemia Status: Acute Assessment and Plan: -the patient's potassium is down to 5.2 from 6.2. -lisinopril is on hold at this time as it can cause hyperkalemia. -patient denies being on any potassium supplements. -this could also be related to his acute kidney injury. (3) Hypertension: Code(s): I10 - Essential (primary) hypertension Status: Acute Assessment and Plan: -lisinopril is on hold at this time. -p.r.n. hydralazine with parameters. Plan The patient is on Eliquis for unknown reasons. According to cardiology notes he has been in SVT and he also has a pacemaker. He has also had a previous history of cancer but denies having any PEs or DVTs. Quality VTE Prophylaxis VTE prophylaxis: pharmacologic ordered
[2025-03-20] MEDS: SODIUM CHLORIDE 0.9% IV 1,000 ML 125 ML IV CONT (00:25)
[2025-03-20 00:35] LABS: Anion Gap 6 mmol/L (4-12); Blood Urea Nitrogen 44 mg/dL (9-20); Calcium 8.8 mg/dL (8.4-10.2); Carbon Dioxide 18 mmol/L (22-30); Chloride 111 mmol/L (98-107); Estimated CRCL calculation 35 ml/min; Estimated Glomerular Filt Rate 44; Glucose 93 mg/dL (65-110); Potassium 5.4 mmol/L (3.4-5.0); Sodium 135 mmol/L (137-145)
[2025-03-20 05:14] LABS: Hematocrit 36.5 % (42.0-52.0); Hemoglobin 11.9 g/dL (14.0-18.0); Mean Corpuscular HGB Conc 32.6 g/dl (32-36); Mean Corpuscular Hemoglobin 31.3 pg (26-34); Mean Corpuscular Volume 96.1 fl (80-100); Platelet Count Result 170 k/mm3 (150-375); Red Blood Count 3.80 M/mm3 (4.6-6.20); White Blood Count 6.2 K/mm3 (4.5-10.0)
[2025-03-20 05:32] LABS: Anion Gap 4 mmol/L (4-12); Blood Urea Nitrogen 39 mg/dL (9-20); Calcium 8.9 mg/dL (8.4-10.2); Carbon Dioxide 20 mmol/L (22-30); Chloride 113 mmol/L (98-107); Estimated CRCL calculation 36 ml/min; Estimated Glomerular Filt Rate 46; Glucose 79 mg/dL (65-110); Potassium 5.4 mmol/L (3.4-5.0); Sodium 137 mmol/L (137-145)
--- NOTE | 2025-03-20 07:29 | P.PNIM_ITS ---
Progress Note: A&P Assessment and Plan (1) ANNA (acute kidney injury): Code(s): N17.9 - Acute kidney failure, unspecified Status: Acute Assessment and Plan: - Cr 1.7 on admit, was 1.2 in 2022 - likely related to NSAID use superimposed on lisinopril - s/p IV fluids with improvement -continue to hold lisinopril. Stop NSAIDs. -encourage p.o. intake -monitor urine output (2) Acute hyperkalemia: Code(s): E87.5 - Hyperkalemia Status: Acute Assessment and Plan: -initial K+ 6.2. Received insulin/dextrose and fluids with improvement however still elevated at 5.5. -hold lisinopril -start scheduled [facility] -repeat BMP in a.m. (3) Hypertension: Code(s): I10 - Essential (primary) hypertension Status: Acute Assessment and Plan: -lisinopril held. - will start Norvasc in the interim for better BP control - monitor BP Plan The patient is on Eliquis for unknown reasons. According to cardiology notes he has been in SVT and he also has a pacemaker. He has also had a previous history of cancer but denies having any PEs or DVTs. Dispo: likely discharge tomorrow if K+ improved Subjective Date/time seen: 03/20/25 07:29 Interval history: Patient seen and examined at bedside. Denied acute complaints. Urinating well. No nausea/vomiting/diarrhea. Review of Systems Review of Systems: All systems reviewed & are unremarkable except as noted in HPI and below Exam Narrative: General: NAD Eyes: EOMI ENT: neck supple Cardiovascular: Regular rate and rhythm Respiratory: Clear to auscultation, respirations even and unlabored on RA Gastrointestinal: Soft, non tender, ostomy with soft brown output Genitourinary: no suprapubic tenderness Musculoskeletal: No edema Skin: warm, dry Neuro: Alert. Psych: Mood appropriate Objective Data Vital Signs Vital Signs: Vital Signs - 24 hr 03/19/25 13:03 03/19/25 13:35 03/19/25 13:35 Temperature 97.6 F Pulse Rate 62 71 71 Respiratory Rate 18 18 18 Blood Pressure 191/66 H 185/77 H 185/77 H Pulse Oximetry 99 98 99 Oxygen Delivery Room Air Room Air Fraction of Inspired Oxygen 03/19/25 13:46 03/19/25 14:02 03/19/25 14:11 Temperature Pulse Rate 78 66 63 Respiratory Rate 20 13 17 Blood Pressure 185/85 H 159/90 H 177/74 H Pulse Oximetry 99 99 99 Oxygen Delivery Fraction of Inspired Oxygen 03/19/25 14:16 03/19/25 14:31 03/19/25 14:40 Temperature Pulse Rate 71 86 77 Respiratory Rate 15 20 Blood Pressure 155/70 H 176/87 H Pulse Oximetry 98 98 Oxygen Delivery Fraction of Inspired Oxygen 03/19/25 14:46 03/19/25 15:01 03/19/25 15:53 Temperature Pulse Rate 68 71 Respiratory Rate 16 18 Blood Pressure 172/60 H 141/83 H Pulse Oximetry 98 98 Oxygen Delivery Room Air Fraction of Inspired Oxygen 03/19/25 16:00 03/19/25 20:00 03/19/25 21:10 Temperature Pulse Rate 80 105 H 69 Respiratory Rate Blood Pressure Pulse Oximetry 97 Oxygen Delivery Room Air Fraction of Inspired Oxygen 21 03/19/25 21:36 03/19/25 22:00 03/20/25 00:00 Temperature 97.7 F Pulse Rate 69 95 Respiratory Rate 18 Blood Pressure 182/62 H Pulse Oximetry 97 Oxygen Delivery Room Air Fraction of Inspired Oxygen 03/20/25 00:22 03/20/25 04:00 03/20/25 06:00 Temperature 98.4 F 98.1 F Pulse Rate 74 60 63 Respiratory Rate 16 18 Blood Pressure 147/64 H 152/63 H Pulse Oximetry 95 100 Oxygen Delivery Fraction of Inspired Oxygen Intake/Output Intake/Output: Intake & Output 03/17/25 03/18/25 03/19/25 03/20/25 23:59 23:59 23:59 23:59 Intake Total 1790 904.2 Balance 1790 904.2 Meds/Results Medications: Active Medications Generic Name Dose Route Start Last Admin Trade Name Freq PRN Reason Stop Dose Admin Acetaminophen 1,000 mg 03/20/25 00:01 Acetaminophen 500 Mg Tablet PO Q6H PRN Pain Apixaban 5 mg 03/20/25 09:00 Apixaban 5 Mg Tablet PO Q12HR ANGELA Hydralazine HCl 10 mg 03/20/25 00:02 Hydralazine Hcl 20 Mg/Ml Vial IV PUSH Q8H PRN Blood Pressure - High Sodium Chloride 1,000 mls @ 125 mls/hr 03/19/25 13:55 03/20/25 00:25 Normal Saline Iv IV CONT 125 mls/hr .Q8H [facility] Administration Labs Labs: Laboratory Results - last 24 hr 03/19/25 03/19/25 03/20/25 13:21 15:47 00:15 WBC 6.1 RBC 4.25 L Hgb 13.2 L Hct 41.1 L MCV 96.7 MCH 31.1 MCHC 32.1 RDW 12.1 Plt Count 192 MPV 9.9 Immature Gran % (Auto) 0.2 Neut % (Auto) 52.9 Lymph % (Auto) 35.5 [place] % (Auto) 9.3 H Eos % (Auto) 1.3 Baso % (Auto) 0.8 Lymph # (Auto) 2.17 [place] # (Auto) 0.6 Eos # (Auto) 0.1 Baso # (Auto) 0.1 Abs Immat Gran (auto) 0.01 Absolute Neuts (auto) 3.2 Absolute Nucleated RBC 0.000 Nucleated RBC % 0.0 Sodium 137 137 135 L Potassium 5.8 H 5.2 H 5.4 H Chloride 107 111 H 111 H Carbon Dioxide 23 17 L 18 L Anion Gap 7 9 6 BUN 52 H 49 H 44 H Creatinine 1.90 H 1.83 H 1.53 H Estim Creat Clear Calc 28 29 35 Estimated GFR 34 L 35 L 44 L Glucose 113 H 78 93 Calcium 9.6 9.1 8.8 Magnesium 2.1 Total Bilirubin 0.4 AST 27 ALT 54 H Alkaline Phosphatase 106 Total Protein 7.3 Albumin 4.3 03/20/25 04:47 WBC 6.2 RBC 3.80 L Hgb 11.9 L Hct 36.5 L MCV 96.1 MCH 31.3 MCHC 32.6 RDW 12.0 Plt Count 170 MPV 10.0 Immature Gran % (Auto) Neut % (Auto) Lymph % (Auto) [place] % (Auto) Eos % (Auto) Baso % (Auto) Lymph # (Auto) [place] # (Auto) Eos # (Auto) Baso # (Auto) Abs Immat Gran (auto) Absolute Neuts (auto) Absolute Nucleated RBC Nucleated RBC % Sodium 137 Potassium 5.4 H Chloride 113 H Carbon Dioxide 20 L Anion Gap 4 BUN 39 H Creatinine 1.47 H Estim Creat Clear Calc 36 Estimated GFR 46 L Glucose 79 Calcium 8.9 Magnesium Total Bilirubin AST ALT Alkaline Phosphatase Total Protein Albumin
[2025-03-20] MEDS: APIXABAN 5 MG TABLET PO ×2 (08:20→20:56)
[2025-03-20] MEDS: SODIUM ZIRCONIUM CYCLOSILICATE 10 GM POWD.PACK PO ×2 (10:08→17:22)
[2025-03-20 12:32] LABS: Anion Gap 7 mmol/L (4-12); Blood Urea Nitrogen 35 mg/dL (9-20); Calcium 8.8 mg/dL (8.4-10.2); Carbon Dioxide 20 mmol/L (22-30); Chloride 109 mmol/L (98-107); Estimated CRCL calculation 39 ml/min; Estimated Glomerular Filt Rate 50; Glucose 95 mg/dL (65-110); Potassium 5.5 mmol/L (3.4-5.0); Sodium 136 mmol/L (137-145)
[2025-03-21] VITALS: PULSE 60
[2025-03-21 02:55] VITALS: BP 146/71; PULSE 71; RESP 18; TEMP 36.7; O2SAT 96
[2025-03-21 04:00] VITALS: PULSE 62
[2025-03-21 05:45] LABS: Anion Gap 4 mmol/L (4-12); Blood Urea Nitrogen 27 mg/dL (9-20); Calcium 9.0 mg/dL (8.4-10.2); Carbon Dioxide 21 mmol/L (22-30); Chloride 111 mmol/L (98-107); Estimated CRCL calculation 42 ml/min; Estimated Glomerular Filt Rate 56; Glucose 83 mg/dL (65-110); Potassium 5.1 mmol/L (3.4-5.0); Sodium 136 mmol/L (137-145)
[2025-03-21 08:00] VITALS: PULSE 64
[2025-03-21] MEDS: APIXABAN 5 MG TABLET PO (10:24)
[2025-03-21] MEDS: SODIUM ZIRCONIUM CYCLOSILICATE 10 GM POWD.PACK PO (10:25)
--- NOTE | 2025-03-21 11:18 | P.DS_ITS ---
DS: Admitting Diagnosis Discharge Date 03/21/25 Admitting Diagnosis -hyperkalemia -ANNA DS: Discharge Diagnosis Discharge Diagnosis (1) ANNA (acute kidney injury): Code(s): N17.9 - Acute kidney failure, unspecified Status: Acute (2) Acute hyperkalemia: Code(s): E87.5 - Hyperkalemia Status: Acute (3) Hypertension: Code(s): I10 - Essential (primary) hypertension Status: Acute DS: Summary Hospital Course Reason for hospitalization: - hyperkalemia - ANNA Hospital Course: Patient is an 85-year-old male with past medical history of colon cancer s/p colostomy, hypertension, atrial fibrillation on Eliquis s/p pacemaker who presented to the emergency department with abnormal labs. Patient had labs ordered for preoperative evaluation for knee surgery and was incidentally found to have potassium of 6.2 and creatinine of 1.7. Patient received regular insulin/dextrose and fluids in the ER and subsequently admitted for further management. Patient's creatinine improved with IV fluids. Patient was started on Lokelma with improvement in potassium to 5.1. His lisinopril was held and switched to amlodipine for blood pressure control. He was given Lokelma x3 more doses to take at home and instructed to have a repeat BMP on Sunday. He was encouraged to maintain adequate p.o. hydration. He was instructed to stop ibuprofen and avoid all NSAIDs. He will follow-up with his primary care provider as scheduled in 1 week. Patient was discharged home in stable condition. Strict return precautions discussed. Status at Discharge Overall status at discharge: patient is back to baseline Time Spent with Patient Time attestation: Total time spent providing and/or coordinating discharge services: Time spent: Greater than 30 minutes Exam Narrative: General: NAD, well-appearing Eyes: EOMI ENT: neck supple Cardiovascular: Regular rate and rhythm Respiratory: Clear to auscultation, respirations even and unlabored on RA Gastrointestinal: Soft, non tender Genitourinary: no suprapubic tenderness Musculoskeletal: No edema Skin: warm, dry Neuro: Alert. Psych: Mood appropriate DS: Data Data Completed and Pending Labs on day of discharge: Labs from last 24 hours 03/21/25 03/20/25 04:50 11:59 Sodium 136 L 136 L Potassium 5.1 H 5.5 H Chloride 111 H 109 H Carbon Dioxide 21 L 20 L Anion Gap 4 7 BUN 27 H 35 H Creatinine 1.24 1.35 H Estim Creat Clear Calc 42 39 Estimated GFR 56 L 50 L Glucose 83 95 Calcium 9.0 8.8 Discharge Plan Discharge Attending physician on discharge: Robbie Galaviz Consulting providers: Shelley Thomas Discharging Clinician: Shelley Thomas Anticipated Discharge Date/Time: 03/21/25 10:54 Patient Disposition: Home Activity: may shower Diet: regular and other - see discharge instructions Discharge Instructions: Have your lab work rechecked on Sunday. Follow-up with your primary care provider as scheduled. Have your lab work sent to your primary care doctor. Please note that your lisinopril has been stopped and he has been started on amlodipine for blood pressure. Check your blood pressure daily and keep a log. Notify your primary care doctor if your blood pressure is consistently over 160/90 prior to your appointment. Follow-up with your primary care provider in one week. Return to the emergency department if you develop chest pain, shortness of breath, persistent fever >100.4, confusion, loss of consciousness, decreased urine output. Visit [employer] for financial assistance for [employer]. Discharge Instructions for Acute Kidney Injury and Hyperkalemia(elevated potassium) * Medication Management: * Take all prescribed medications as directed. If you were started on a potassium binder (such as sodium zirconium cyclosilicate), continue as instructed. * Avoid wnkf-inu-nbarmgm medications and supplements that can worsen kidney function or increase potassium, such as NSAIDs, potassium supplements, and salt substitutes. * If you are on blood pressure medications (especially MILADYS inhibitors, ARBs, or mineralocorticoid receptor antagonists), do not stop them unless specifically instructed, but notify your provider if you experience muscle weakness, palpitations, or chest pain. * Dietary Guidance: * Limit foods high in potassium?(such as bananas, oranges, tomatoes, potatoes, and dark leafy greens). * Avoid salt substitutes containing potassium. * If you have questions about your diet, ask for a referral to a dietitian. * Monitoring and Follow-Up: * Schedule follow-up lab tests as directed to monitor kidney function and potassium levels. * Watch for symptoms of high potassium: muscle weakness, numbness, irregular heartbeat, or chest pain. Seek immediate medical attention if these occur. * Maintain adequate hydration unless otherwise instructed, but avoid excessive fluid intake if you have swelling or shortness of breath. * General Precautions: * Report any new or worsening symptoms, including decreased urine output, swelling, shortness of breath, or confusion. * Avoid strenuous activity until cleared by your provider. * Do not use herbal remedies or supplements without consulting your healthcare team, as some can raise potassium. * Contact Information: * If you experience severe symptoms (chest pain, palpitations, severe weakness), call emergency services or go to the nearest emergency department immediately. * For non-urgent questions, contact your zinc plater or primary care provider. Summary: Careful medication adherence, dietary potassium restriction, and close follow-up are essential to prevent complications from ANNA and hyperkalemia. Early recognition of symptoms and prompt medical attention can be lifesaving.[2- 7][9][11] Patient Instructions: Antibiotic Form, Apixaban (By mouth), Sodium Zirconium Cyclosilicate (By mouth), Safe Use of Anticoagulants (GEN), Blood Thinners (GEN) Patient Language: Occitan Stand Alone Forms: General Discharge Information Follow-up/Referrals: PHYSICIAN NOT ON STAFF,NONSTAFF [Primary Care Provider] - Call for Appointment Referral Note: Keep your scheduled appointment with your primary care doctor. Discharge Medications: New amlodipine [Norvasc] 5 mg Tablet 5 mg PO DAILY 30 Days Qty: 30 0RF sodium zirconium cyclosilicate 5 gram powder in packet 10 g PO DAILY 3 Days Qty: 3 0RF Continued multivitamin with minerals Tablet 1 tablet PO DAILY Eliquis 5 mg tablet 5 mg PO Q12H Patient Comments: HOLD FOR 48hrs prior per Dr Quintero/ acetaminophen [Acetaminophen Extra Strength] 500 mg tablet 1,000 mg PO Q6H PRN (Reason: pain) Giyzorslygh-Zgsqf-OGN Complex 656-828-30-0.5 mg tablet 1 tablet PO DAILY lutein 20 mg capsule 20 mg PO DAILY Rx Instructions: give with meal/snack Discontinued lisinopril 20 mg tablet 40 mg PO DAILY ibuprofen-acetaminophen 125-250 mg tablet 1 tablet PO ONCE PRN (Reason: pain) Patient Comments: HOLD 7 days prior w NSAID Other Ambulatory Orders: Basic Metabolic Panel (Routine) Timeframe: 3 Days Location: Determined by Patient Ordered By: Shelley Thomas Date of admission: 03/20/25 08:44 Primary Care Provider: PHYSICIAN NOT ON STAFF,NONSTAFF Admitting Provider: Angelito Gann Attending physician on admission: Angelito Gann Condition: Stable
[2025-03-21 12:00] VITALS: PULSE 65
[2025-03-21 13:57] VITALS: BP 166/54; PULSE 77; RESP 16; TEMP 36.7; O2SAT 98
== END 2025-03-21 14:25 | disposition home or self-care (01) | DRG 683 ==
LOC: ANHED 14:05 → ANH2MED 14:49
PROVIDERS: Family Medicine; Nurse Practitioner; Admitting Provider Internal Medicine; Emergency Provider Emergency Medicine; Visit Provider Physician Assistant
DX: N17.9 Acute kidney failure, unspecified (principal); I47.10 Supraventricular tachycardia, unspecified; E87.5 Hyperkalemia; T46.4X5A Adverse effect of angiotensin-converting-enzyme inhibitors, initial encounter; T39.395A Adverse effect of other nonsteroidal anti-inflammatory drugs [NSAID], initial encounter; E86.0 Dehydration; I48.91 Unspecified atrial fibrillation; I10 Essential (primary) hypertension; I35.1 Nonrheumatic aortic (valve) insufficiency; M17.0 Bilateral primary osteoarthritis of knee; F10.91 Alcohol use, unspecified, in remission; Z96.651 Presence of right artificial knee joint; Z87.891 Personal history of nicotine dependence; Z79.01 Long term (current) use of anticoagulants; Z93.3 Colostomy status; Z85.038 Personal history of other malignant neoplasm of large intestine; Z95.0 Presence of cardiac pacemaker
CPT/HCPCS: 36415; 80048; 80053; 83735; 85025; 85027; 93005; 96361; 96374; 96375; 99285; A9270; G0378; J1815; J7030

== ENCOUNTER 2025-03-24 11:20 | Outpatient (CLI) | payer MEDICARE, SELFPAY ==
--- OUTSIDE RECORDS SUMMARY | 2024-10-09 03:31 | XMS_ITS | Continuity of Care Document ---
Author Organization [facility], L TD Address [address] [place] [address] Phone Care Team Providers Care Window Air Conditioner Installer Name Role Phone Bam Murcia MD Unavailable Unavailable Allergies, Adverse Reactions, Alerts Substance Reaction Status Criticality No Known Drug Allergies Active No I nformation Medications Medication Instructions Dosage Effective Dates (start - stop) Status Comments irbesartan 150 mg tablet take 1 tablet by oral route every day 150 MG - Active Xarelto 20 mg tablet take 1 tablet by or al route every day with the evening meal 20 MG - Active pravastatin 40 mg tablet take 1 tablet by oral route every day 40 MG - Active metoprolol tartrate 50 mg tablet take 1 tablet by oral route 2 times every day with meals 50 MG - Active Procedures Procedure Date REFRACTION EYE EXAM ESTABLISHED PATIENT REFRACTION EYE EXAM ESTABLISHED PATIENT REFRACTION EYE EXAM ESTABLISHED PATIENT REFRACTION POSTOP FOLLOW-UP VISIT Postoperative Exam CATARACT SURG W/IOL IOL MASTER, PROF COMP ONLY Postoperative Exam CATARACT SURG W/IOL EYE EXAM, NEW PATIENT REFRACTION IOL MASTER Post Operative Kit / Medical Supply By P rescription Advance Directives Directive Yes / No Effective Date File Name No Information Encounters Encounter Description Practice Location Reason(s) For Visit Diagnoses Date Provider Providers Copied on Encounter [facility], [address] [place] [address], [id number] , tel: [phone] [facility] No Information 5 Divina Kuhn. [address] [place] [address], [id number] , [place]. tel: [phone] [address], [id number] , [place] tel: [phone] [facility] vision exam OU with f/u IOL OU, PCO OU, and Refractive (chief complaint) Other secondary cataract, bilateralPresence of intraocular lensHypermetropia , bilateralRegular astigmatism, bilateralPresbyop ia 5 Divina Kuhn. [address] [place] [address], [id number] , [place]. tel: [phone] Referring Provider: Bam Tomas, [address] [place] [address], [id number] . tel:[phone] [facility], [address] [place] [address], [id number] , [place] tel: [phone] [facility] f/u PCO OS, IOL OU and Refractive Error OU (chief complaint) Presence of intraocular lensHypermetropia , bilateralRegular astigmatism, bilateralPresbyop iaOther secondary cataract, bilateral 4 Divina Kuhn. [address] [place] [address], [id number] , [place]. tel: [phone] Referring Provider: Bam Tomas, [address] [place] [address], [id number] . tel:[phone], [id number] , [place] tel: [phone] [facility] f/u IOL OU and Ref Err OU. (chief complaint) Presence of intraocular lensHypermetropia , bilateralRegular astigmatism, bilateralPresbyop iaOther secondary cataract, left eye Jul-0 3 Divina Kuhn. [address] [place] [address], [id number] , [place]. tel: [phone] Referring Provider: Bam Tomas, [address] [place] [address], [id number] . tel:[phone] [facility], [address] [place] [address], [id number] , [place] tel: [phone] [facility] vision has improved (chief complaint) Cataract extraction status, left eyeCataract extraction status, right eyePresence of intraocular lensPresbyopiaReg ular astigmatism, bilateralHypermet ropia, bilateral Mar- 2 Divina Kuhn. [address] [place] [address], [id number] , [place]. tel: [phone] [facility], [address] [place] [address], [id number] , [place] tel: [phone] [facility] Post-op cataract surgery (chief complaint) Cataract extraction status, left eye 2 Divina Kuhn. [address] [place] [address], [id number] , [place]. tel: [phone] Referring Provider: Bam Tomas, [address] [place] [address], [id number] . tel:[phone] [facility], [address] [place] [address], [id number] , [place] tel: [phone] [facility], [facility] No Information 2 Divian Kuhn. [address] [place] [address], [id number] , [place]. tel: [phone] [facility], [address] [place] [address], [id number] , [place] tel: [phone] [facility] No Information 2 Divina Kuhn. [address] [place] [address], [id number] , [place]. tel: [phone] Referring Provider: Bam Tomas, [address] [place] [address], [id number] . tel:[phone] [facility], [address] [place] [address], [id number] , [place] tel: [phone] [facility] Post-op cataract surgery (chief complaint) Cataract extraction status, right eye 2 Divina Kuhn. [address] [place] [address], [id number] , [place]. tel: [phone] [facility], [address] [place] [address], [id number] , [place] tel: [phone] [facility], [facility] No Information 2 Divina Kuhn. [address] [place] [address], [id number] , [place]. tel: [phone] [facility], [address] [place] [address], [id number] , tel: [phone] [facility] trouble reading and driving (chief complaint) PresbyopiaHyperme tropia, bilateralRegular astigmatism, right eye 2 Divina Kuhn. [address] [place] [address], [id number] , [place]. tel: [phone] Family History Family Member Type Diagnosis Age At Onset Problem No family history of Glaucom a Problem No family history of Catarac ts Problem No family history of Diabete s mellitus Mother Problem degenerative disorder of mac flaquito Father Problem Hypertension Payers Payer name Insurance type Covered constitution party ID Authoriza tion(s) No Information Social History Type Description Quantity Date Captured Comments Sex Male Smoking Status No Information Chief Complaint And Reason For Visit No Information Reason For Referral Reason For Referral No Information History Of Present Illness Encounter Date Complaint History Of Prese nt Illness vision exam OU with f/u IOL OU, PCO OU, and Refractive The 84 year old patient presents for vision exam OU with f/u IOL OU, PCO OU, and Refractive Error OU. Vision good and stable and constant D & N c gls OU. Patient denies: pain or discomfort OU. NO AT f/u PCO OS, IOL OU a nd Refractive Error OU The 83 year old patient presents for f/u PCO OS, IOL OU and Refractive Error OU. Pt states that d/n vision c gls OU is good and stable since last visit. Patient denies: pain or discomfort. Pt not using any eye meds or AT. f/u IOL OU and Ref Err OU. The [age] year old patient presents for f/u IOL OU and Ref Err OU. Patient states vision is good and stable D/N OU c gls since last exam. Patient denies: pain or discomfort. Patient not using any eye meds or AT. vision has improved The 81 Year old male presents for follow up KPE C PC basic IOL OD 06/29/21 and 07/12/21 OS. Patient reports vision has improved in the right eye and left eye, since surgery. It affects distance vision. The patient denies COVID-19 symptoms - temperature normal and pain or discomfort. Patient is using Pred BID OU. Post-op cataract surgery The 81 year old male presents for Post-op cataract surgery in the left eye. Pt states OS vision is still blurry, but things are brighter. Pt states OD vision is good and stable. Patient denies any pain or discomfort in OU & COVID-19 symptoms - temperature normal. Post-op cataract surgery The 81 year old male presents for Post-op cataract surgery in the right eye. Patient denies COVID-19 symptoms - temperature normal. Pt reports VA improved OD. D&NVA cloudy but stable OS. Pt denies pain/discomfort OU. trouble reading and driving The 81 Year old male presents for Cat Eval OU. Pt reports trouble reading and driving in the right eye and left eye c gls. It started about 2 year(s) ago. It affects both near and far vision c gls. Pt reports having trouble reading books, and some street signs until the signs get closer. Pt reports trouble driving due to glare and halos. The patient denies pain or discomfort and COVID-19 symptoms - temperature normal. Pt denies using eye meds and OTC AT. Functional Status Date Functional Assessmen t No Information Instructions Date Instruction Additional Infor lena Impression/Plan Impression/Plan Impression/Plan Impression/Plan Impression/Plan Related to Catar act extraction status, left eye Impression/Plan Related to Catar act extraction status, right eye Impression/Plan Assessments Type Assessment Date No Information Patient Care Teams Name Effective Dates (start - stop) Status Members No Information
[2025-03-24 12:57] LABS: Anion Gap 7 mmol/L (4-12); Blood Urea Nitrogen 37 mg/dL (9-20); Calcium 9.3 mg/dL (8.4-10.2); Carbon Dioxide 22 mmol/L (22-30); Chloride 104 mmol/L (98-107); Estimated Glomerular Filt Rate 36; Glucose 87 mg/dL (65-110); Potassium 6.1 mmol/L (3.4-5.0); Sodium 133 mmol/L (137-145)
--- OUTSIDE RECORDS SUMMARY | 2025-03-24 13:45 | XMS_ITS | Clinical Summary ---
Author Organization [facility] [id number] Address [address] [place] [id number] Care Team Providers Care Wind Turbine Technician Name Role Phone Ollie Moya MD Primary Care Provider [phone] Allergies Active Allergy Reactions Criticality Noted Date [...] on file Legal Sex Male 8:07 PM [employer]OR [employer] Gender Identity Not on file Sexual Orientation Not on file Last Filed Vital Signs Vital Sign Reading [...] Insurance MEDICARE [employer] S[employer]IOR [employer]MENT Care Teams Wind Turbine Technician Relationship Specialty Start Date End Date Ollie Moya MD [address] [place] [address] PCP - General Orthopedic Surgery 01/08/23
--- OUTSIDE RECORDS SUMMARY | 2025-03-24 13:45 | XMS_ITS | Encounter Summary ---
Author Organization [facility] Address [address] [place] [address] Care Team Providers Care Hospice Home Health Aide Name Role Phone Unavailable Primary Care Provider Unavailabl e Encounter Details Date Type Department Care Team (Late st Contact Info) Description 10/09/2024 Lab Requisition [facility] - DermPath Lab [address] [place] [id number] Claire Hammond PA [address] [place] [id number] Neoplasm of uncertain behavior of skin Social [...] AM CDT) Case Report Dermatopathology Report Case: [id number] Authorizing Provider: Claire Hammond PA Collected: 10/09/2024 11:18 AM Ordering Location: [facility] Physician [facility] - Received: 10/14/2024 07:06 AM DermPath [...] specimen consists of a shave biopsy measuring [id number] mm. Jar 0. 12:36 PM CDT DERMATOPATHOLOGY [...] characteristic determined by the Dermatopathology Laboratory at [facility], directed by Dr. Vick Winters. These tests need not be, and therefore are not, approved by the [place] Food and Drug Administration. The tests are used for clinical purposes. Billing Codes Specimen Charges Stain Charges 38256 1 12:36 PM CDT DERMATOPATHOLOGY LABORATORY Embedded Images 12:36 PM CDT DERMATOPATHOLOGY LABORATORY Pathology/Cytolo gy TISSUE SPECIMEN FROM SKIN / Unknown 10/09/2024 11:18 AM CDT 10/14/2024 7:06 AM CDT Claire [facility]EE[facility] - PATHOLOGY/CYTOLOGY OR DERABLES Final Result DERMATOPATHOLOGY LABORATORY [facility] - Department of Dermatology [address], [address] [phone] documented in this encounter Visit Diagnoses Diagnosis Neoplasm of uncertain behavior of skin documented in this encounter
--- OUTSIDE RECORDS SUMMARY | 2025-03-24 13:45 | XMS_ITS | Clinical Summary ---
Author Organization [facility] Address [address] [place] [address] Care Team Providers Care Bathhouse Attendant Name Role Phone Unavailable Primary Care Provider Unavailabl e Source Comments [facility] [employer],non-owned Affiliates and Associated Physician Practices is amultiple site organization consisting of ambulatory clinics and hospital sitesin [place], [place], [place] and [place]. This disclosure is being madepursuant to the Care Everywhere program and may not contain all information available regarding this patient. Last updated 18.[facility] [employer] Social History Tobacco Use Types Packs/Day Years [...]
== END 2025-03-24 11:21 | disposition home or self-care (01) ==
LOC: ANHLAB 11:28
PROVIDERS: Visit Provider Physician Assistant
DX: N17.9 Acute kidney failure, unspecified (principal)
CPT/HCPCS: 36415; 80048

== ENCOUNTER 2025-03-24 13:53 | Emergency (ER) | payer MEDICARE, SELFPAY ==
--- OUTSIDE RECORDS SUMMARY | 2024-10-09 03:31 | XMS_ITS | Continuity of Care Document ---
Author Organization [facility], L [facility] Address [address] [place] [address] Phone Care Team Providers Care Precipitator Supervisor Name Role Phone Bam Murcia MD Unavailable Unavailable Allergies, Adverse Reactions, Alerts Substance Reaction Status Criticality No Known Drug Allergies Active No I nformation Medications Medication Instructions Dosage Effective Dates (start - stop) Status Comments irbesartan 150 mg tablet take 1 tablet by oral route every day 150 MG - Active metoprolol tartrate 50 mg tablet take 1 tablet by oral route 2 times every day with meals 50 MG - Active pravastatin 40 mg tablet take 1 tablet by oral route every day 40 MG - Active Xarelto 20 mg tablet take 1 tablet by or al route every day with the evening meal 20 MG - Active Procedures Procedure Date REFRACTION [...] Diagnoses Date Provider Providers Copied on Encounter [facility], [address] [place] [address], [id number] , tel: [phone] [facility] No Information 5 Divina Kuhn. [address] [place] [address], [id number] , [place]. tel: [phone] [address], [id number] , [place] tel: [phone] [facility] vision exam OU with f/u IOL OU, PCO OU, and Refractive (chief complaint) Other secondary cataract, bilateralPresence of intraocular lensHypermetropia , bilateralRegular astigmatism, bilateralPresbyop ia 5 Divina Kuhn. [address] [place] [address], [id number] , [place]. tel: [phone] Referring Provider: Bam Tomas, [address] [place] [address], [id number] . tel:[phone] [facility], [address] [place] [address], [id number] , [place] tel: [phone] [facility] f/u PCO OS, IOL OU and Refractive Error OU (chief complaint) Presence of intraocular lensHypermetropia , bilateralRegular astigmatism, bilateralPresbyop iaOther secondary cataract, bilateral 4 Divina Kuhn. [address] [place] [address], [id number] , [place]. tel: [phone] Referring Provider: Bam Tomas, [address] [place] [address], [id number] . tel:[phone], [id number] , [place] tel: [phone] [facility] f/u IOL OU and Ref Err OU. (chief complaint) Presence of intraocular lensHypermetropia , bilateralRegular astigmatism, bilateralPresbyop iaOther secondary cataract, left eye Jul-0 3 Divina Kuhn. [address] [place] [address], [id number] , [place]. tel: [phone] Referring Provider: Bam Tomas, [address] [place] [address], [id number] . tel:[phone] [facility], [address] [place] [address], [id number] , [place] tel: [phone] [facility] vision has improved (chief complaint) Cataract extraction status, left eyeCataract extraction status, right eyePresence of intraocular lensPresbyopiaReg ular astigmatism, bilateralHypermet ropia, bilateral Mar- 2 Divina Kuhn. [address] [place] [address], [id number] , [place]. tel: [phone] [facility], [address] [place] [address], [id number] , [place] tel: [phone] [facility] Post-op cataract surgery (chief complaint) Cataract extraction status, left eye 2 Divina Kuhn. [address] [place] [address], [id number] , [place]. tel: [phone] Referring Provider: Bam Tomas, [address] [place] [address], [id number] . tel:[phone] [facility], [address] [place] [address], [id number] , [place] tel: [phone] [facility], [facility] No Information 2 Divina Kuhn. [address] [place] [address], [id number] , [place]. tel: [phone] [facility], [address] [place] [address], [id number] , [place] tel: [phone] [facility] No Information 2 Divina Kuhn. [address] [place] [address], [id number] , [place]. tel: [phone] Referring Provider: Bam Tomas, [address] [place] [address], [id number] . tel:[phone] [facility], [address] [place] [address], [id number] , [place] tel: [phone] [facility] Post-op cataract surgery (chief complaint) Cataract extraction status, right eye 2 Divina Kuhn. [address] [place] [address], [id number] , [place]. tel: [phone] [facility], [address] [place] [address], [id number] , [place] tel: [phone] [facility], [facility] No Information 2 Divina Kuhn. [address] [place] [address], [id number] , [place]. tel: [phone] [facility], [address] [place] [address], [id number] , tel: [phone] [facility] trouble reading and driving (chief complaint) PresbyopiaHyperme tropia, bilateralRegular astigmatism, right eye 2 Divina Kuhn. [address] [place] [address], [id number] , [place]. tel: [phone] Family History Family Member Type Diagnosis Age At Onset Mother Problem degenerative disorder of mac flaquito Problem No family history of Diabete s mellitus Father Problem Hypertension Problem No family history of Catarac ts Problem No family history of Glaucom a Payers Payer name Insurance type Covered democrat ID Authoriza tion(s) No Information Social History [...]
[2025-03-24 13:59] VITALS: BP 170/65; PULSE 92; RESP 20; TEMP 36.6; O2SAT 96
--- NOTE | 2025-03-24 14:02 | ED.RECABL ---
HPI - Recheck/Abnormal Lab/Rx General Chief Complaint: Recheck/Abnormal Lab/Rx <ANA PAULA Tobar Last Filed: 03/24/25 14:20> Stated Complaint: INCREASED K <Jannet Powell PA-C - Last Filed: 03/24/25 14:20> Time Seen by Provider: 03/24/25 14:02 <ANA PAULA Tobar Last Filed: 03/24/25 14:20> Focused HPI: Patient is an 85 y/o male, with PMH HTN, AFIB on Eliquis, pacemaker, who presents to the ED with c/o abnormal labs. Patient reports he had a pre-op appointment for upcoming L knee surgery last week and was found to have elevated potassium. Was admitted to the hospital at that time. Was discharged on lokelma, but was unable to pick this up from the pharmacy. Reports he has been eating and drinking normally. Has been drinking coconut-water based sports drink. Had follow up blood work performed again today and was told K was elevated again to return to the ED. Patient states he feels fine. Denies dizziness, lightheadedness, CP, SOB, myalgias, weakness. GENERAL: Well-appearing, well-nourished, and in no acute distress. HEAD: Normocephalic, atraumatic. CHEST: Clear to auscultation. ?No respiratory distress. HEART: Regular rate and rhythm.? NEURO: ?Alert and oriented x3. Patient screened in triage and initial orders placed.? ?Additional care and disposition to be based upon?diagnostic testing and treatment. <ANA PAULA Tobar Last Filed: 03/24/25 14:20> Source: patient and old records reviewed <ANA PAULA Tobar Last Filed: 03/24/25 14:20> Mode of arrival: ambulatory <ANA PAULA Tobar Last Filed: 03/24/25 14:20> Limitations: no limitations <ANA PAULA Tobar Last Filed: 03/24/25 14:20> History of Present Illness HPI narrative: Agree with HPI. Patient was told to keep hydrated, did realize that the drink he was drinking to keep hydrated contained a large amount of potassium and that he had chugged 4 of them today. Denying any symptoms. <Suma Doe MD - Last Filed: 03/24/25 16:17> Related Data Home Medications: Home Medications ?Medication ?Instructions ?Recorded ?Confirmed ?Last Taken ?Type multivitamin with minerals 1 tablet PO DAILY 03/05/23 03/19/25 03/19/23 History acetaminophen 500 mg tablet 1,000 mg PO Q6H PRN pain 03/19/25 03/19/25 Unknown History (Acetaminophen Extra Strength) apixaban 5 mg tablet (Eliquis) 5 mg PO Q12H 03/19/25 03/19/25 Unknown History glucosamine 375 hs-gfxxwixah-nly 1 tablet PO DAILY 03/19/25 03/19/25 Unknown History no1 500 mg-C 15 mg-samy 0.5 mg tablet (Bokqicpfufu-Sdsyjhhopim-FOS Complex) lutein 20 mg capsule 20 mg PO DAILY 03/19/25 03/19/25 Unknown History <Jannet Powell PA-C - Last Filed: 03/24/25 14:20> Allergies/Adverse Reactions: Allergies Allergy/AdvReac Type Severity Reaction Status Date / Time oxycodone AdvReac Nausea and Verified 03/24/25 16:08 Vomiting <Jannet Powell PA-C - Last Filed: 03/24/25 14:20> Review of Systems Review of Systems: All systems reviewed & are unremarkable except as noted in HPI and below <Suma Doe MD - Last Filed: 03/24/25 16:17> [facility] Past Medical History Medical History: Medical History (Updated 03/24/25 @ 16:13 by Suma Doe MD) Colostomy in place Aortic valve insufficiency Cardiac pacemaker in situ Hypertension Single seizure (2007) Colon cancer (2010) Status post colon resection and chemoradiation. Osteoarthritis of both knees <Jannet Powell PA-C - Last Filed: 03/24/25 14:20> Surgical History Surgical History: Surgical History (Updated 03/20/25 @ 00:11 by Radhika Stock APRN) History of bilateral cataract extraction History of arthroplasty of right knee (03/26/23) Per Dr. Moya History of colon resection (2010) He has a colostomy <Jannet Powell PA-C - Last Filed: 03/24/25 14:20> Family History Family History: Family History Father Cerebrovascular accident Other Family history non-contributory <Jannet Powell PA-C - Last Filed: 03/24/25 14:20> Social History Social History: Social History (Updated 03/20/25 @ 00:12 by Radhika Stock APRN) Social History: He is lives with his and has 2 children. Surrogate medical decision maker: Ana Hazel, spouse. Code status: Full code. Smoking packs per day: 2 Smoking cigarettes per day: 40.0 Years smoked: 20 Smoking pack-years: 40.00 Smoking status: Former smoker Additional smoking assessment comments: Denies Nicotine Alcohol intake: former Drinks per week: 21 Alcohol use details: last drink 03/03/25 Substance use: never Substance use type: does not use Lack of Transportation: No Lack of Food: Never True Current Housing: Decline to Answer Concerned About Future Housing: Decline to Answer Difficulty Paying Gas/Electric Bills: Decline to Answer Difficulty Paying for Meds: Decline to Answer Currently Unemployed: Decline to Answer Education: Decline to Answer Difficulty w/ Childcare or Family Care: Decline to Answer Living arrangements: with family Additional living arrangements comments: Occupation/Education: retired Spiritual care concerns: No <Jannet Powell PA-C - Last Filed: 03/24/25 14:20> Exam Narrative: EXAMINATION OF ORGAN SYSTEMS/BODY AREAS: Constitutional: Vital signs per nursing GENERAL:[No acute distress, non-toxic appearing.] HEAD: Normal with no signs of head trauma. EYES: EOMI, conjunctiva normal ENT: Hearing grossly intact LUNGS: Nonlabored breathing. HEART: [Regular rate and rhythm] ABD: [Soft], [nontender to palpation] EXT: Normal range of motion SKIN: [No rashes or lesions.] NEURO: [Alert and oriented x 3. No gross focal sensory or strength deficits.] PSYCH: Normal affect <Suma Doe MD - Last Filed: 03/24/25 16:17> Course Vital Signs Vital signs: Vital Signs Temperature 97.8 F 03/24/25 13:59 Pulse Rate 92 03/24/25 13:59 Respiratory Rate 20 03/24/25 13:59 Blood Pressure 170/65 H 03/24/25 13:59 Pulse Oximetry 96 03/24/25 13:59 Temperature 97.8 F 03/24/25 13:59 Pulse Rate 76 03/24/25 14:53 Respiratory Rate 20 03/24/25 14:53 Blood Pressure 164/75 H 03/24/25 14:53 Pulse Oximetry 97 03/24/25 14:53 <Jannet Powell PA-C - Last Filed: 03/24/25 14:20> Vital Signs Temperature 97.8 F 03/24/25 13:59 Pulse Rate 92 03/24/25 13:59 Respiratory Rate 20 03/24/25 13:59 Blood Pressure 170/65 H 03/24/25 13:59 Pulse Oximetry 96 03/24/25 13:59 Temperature 97.8 F 03/24/25 13:59 Pulse Rate 76 03/24/25 14:53 Respiratory Rate 20 03/24/25 14:53 Blood Pressure 164/75 H 03/24/25 14:53 Pulse Oximetry 97 03/24/25 14:53 <Suma Doe MD - Last Filed: 03/24/25 16:17> MDM - Recheck/Abnormal Lab/Rx MDM Narrative Medical decision making narrative: MSE by VIKTORIA in triage. <Jannet Powell PA-C - Last Filed: 03/24/25 14:20> MSE by VIKTORIA in triage. Patient presenting due to hyperkalemia which has unfortunately canceled his planned surgery. Potassium initially drawn was 6.1, on repeat here it is improved to 5.3, he has no symptoms, EKG on my independent interpretation shows rate 70, HI 192, QRS 150, QTC 442, similar morphology to last EKG from a few days ago. Creatinine 1.7 however this appears to be around his baseline, he tells me he is still making good amount of urine. He will be given another L of fluids here, counseled on avoiding food and drink with high potassium, and asked to follow-up with his doctor with return precautions. Patient agreeable to plan. <Suma Doe MD - Last Filed: 03/24/25 16:17> Lab Data Result diagrams: 03/24/25 14:59 03/24/25 14:59 <Jannet Powell PA-C - Last Filed: 03/24/25 14:20> Labs: Lab Results 03/24/25 03/24/25 03/24/25 Range/Units 14:59 14:59 14:59 WBC 6.5 (4.5-10.0) K/mm3 RBC 4.15 L (4.6-6.20) M/mm3 Hgb 12.9 L (14.0-18.0) g/dL Hct 39.2 L (42.0-52.0) % MCV 94.5 (80-100) fl MCH 31.1 (26-34) pg MCHC 32.9 (32-36) g/dl RDW 11.8 (11.5-14.5) % Plt Count 194 (150-375) k/mm3 MPV 9.6 (7.4-10.4) fl Immature Gran % (Auto) 0.3 (0-0.5) % Neut % (Auto) 66.6 (45.5-73.1) % Lymph % (Auto) 22.8 (18.3-44.2) % Preble % (Auto) 8.2 (2.6-8.5) % Eos % (Auto) 1.5 (0-4.4) % Baso % (Auto) 0.6 (0.2-1.2) % Lymph # (Auto) 1.48 (0.9-3.2) K/mm3 Preble # (Auto) 0.5 (0.1-0.6) K/mm3 Eos # (Auto) 0.1 (0-0.3) K/mm3 Baso # (Auto) 0.0 (0.0-0.1) K/mm3 Abs Immat Gran (auto) 0.02 (0.00-0.031) K/mm3 Absolute Neuts (auto) 4.3 (1.3-6.7) K/mm3 Absolute Nucleated RBC 0.000 (0.0-0.012) K/mm3 Nucleated RBC % 0.0 (0.0-0.2) % Sodium 134 L 133 L (137-145) mmol/L Potassium 5.4 H 5.4 H (3.4-5.0) mmol/L Chloride 104 (98-107) mmol/L Carbon Dioxide (22-30) mmol/L Anion Gap (4-12) mmol/L BUN (9-20) mg/dL Creatinine (0.7-1.3) mg/dL Estim Creat Clear Calc ml/min Estimated GFR (59 - ) Glucose (65-110) mg/dL Calcium (8.4-10.2) mg/dL Magnesium (1.6-2.3) mg/dL Total Bilirubin (0.2-1.3) mg/dL AST (17-59) U/L ALT (6-50) U/L Alkaline Phosphatase (38-126) U/L Total Protein (6.3-8.2) g/dL Albumin (3.5-5.1) g/dL 03/24/25 03/24/25 03/24/25 Range/Units 14:59 14:59 14:59 WBC (4.5-10.0) K/mm3 RBC (4.6-6.20) M/mm3 Hgb (14.0-18.0) g/dL Hct (42.0-52.0) % MCV (80-100) fl MCH (26-34) pg MCHC (32-36) g/dl RDW (11.5-14.5) % Plt Count (150-375) k/mm3 MPV (7.4-10.4) fl Immature Gran % (Auto) (0-0.5) % Neut % (Auto) (45.5-73.1) % Lymph % (Auto) (18.3-44.2) % Preble % (Auto) (2.6-8.5) % Eos % (Auto) (0-4.4) % Baso % (Auto) (0.2-1.2) % Lymph # (Auto) (0.9-3.2) K/mm3 Preble # (Auto) (0.1-0.6) K/mm3 Eos # (Auto) (0-0.3) K/mm3 Baso # (Auto) (0.0-0.1) K/mm3 Abs Immat Gran (auto) (0.00-0.031) K/mm3 Absolute Neuts (auto) (1.3-6.7) K/mm3 Absolute Nucleated RBC (0.0-0.012) K/mm3 Nucleated RBC % (0.0-0.2) % Sodium (137-145) mmol/L Potassium (3.4-5.0) mmol/L Chloride 105 (98-107) mmol/L Carbon Dioxide 20 L 20 L (22-30) mmol/L Anion Gap 10 8 (4-12) mmol/L BUN 37 H (9-20) mg/dL Creatinine (0.7-1.3) mg/dL Estim Creat Clear Calc ml/min Estimated GFR (59 - ) Glucose (65-110) mg/dL Calcium (8.4-10.2) mg/dL Magnesium (1.6-2.3) mg/dL Total Bilirubin (0.2-1.3) mg/dL AST (17-59) U/L ALT (6-50) U/L Alkaline Phosphatase (38-126) U/L Total Protein (6.3-8.2) g/dL Albumin (3.5-5.1) g/dL 03/24/25 03/24/25 03/24/25 Range/Units 14:59 14:59 14:59 WBC (4.5-10.0) K/mm3 RBC (4.6-6.20) M/mm3 Hgb (14.0-18.0) g/dL Hct (42.0-52.0) % MCV (80-100) fl MCH (26-34) pg MCHC (32-36) g/dl RDW (11.5-14.5) % Plt Count (150-375) k/mm3 MPV (7.4-10.4) fl Immature Gran % (Auto) (0-0.5) % Neut % (Auto) (45.5-73.1) % Lymph % (Auto) (18.3-44.2) % Preble % (Auto) (2.6-8.5) % Eos % (Auto) (0-4.4) % Baso % (Auto) (0.2-1.2) % Lymph # (Auto) (0.9-3.2) K/mm3 Preble # (Auto) (0.1-0.6) K/mm3 Eos # (Auto) (0-0.3) K/mm3 Baso # (Auto) (0.0-0.1) K/mm3 Abs Immat Gran (auto) (0.00-0.031) K/mm3 Absolute Neuts (auto) (1.3-6.7) K/mm3 Absolute Nucleated RBC (0.0-0.012) K/mm3 Nucleated RBC % (0.0-0.2) % Sodium (137-145) mmol/L Potassium (3.4-5.0) mmol/L Chloride (98-107) mmol/L Carbon Dioxide (22-30) mmol/L Anion Gap (4-12) mmol/L BUN 38 H (9-20) mg/dL Creatinine 1.72 H 1.73 H (0.7-1.3) mg/dL Estim Creat Clear Calc 31 31 ml/min Estimated GFR 38 L (59 - ) Glucose (65-110) mg/dL Calcium (8.4-10.2) mg/dL Magnesium (1.6-2.3) mg/dL Total Bilirubin (0.2-1.3) mg/dL AST (17-59) U/L ALT (6-50) U/L Alkaline Phosphatase (38-126) U/L Total Protein (6.3-8.2) g/dL Albumin (3.5-5.1) g/dL 03/24/25 03/24/25 03/24/25 Range/Units 14:59 14:59 14:59 WBC (4.5-10.0) K/mm3 RBC (4.6-6.20) M/mm3 Hgb (14.0-18.0) g/dL Hct (42.0-52.0) % MCV (80-100) fl MCH (26-34) pg MCHC (32-36) g/dl RDW (11.5-14.5) % Plt Count (150-375) k/mm3 MPV (7.4-10.4) fl Immature Gran % (Auto) (0-0.5) % Neut % (Auto) (45.5-73.1) % Lymph % (Auto) (18.3-44.2) % Preble % (Auto) (2.6-8.5) % Eos % (Auto) (0-4.4) % Baso % (Auto) (0.2-1.2) % Lymph # (Auto) (0.9-3.2) K/mm3 Preble # (Auto) (0.1-0.6) K/mm3 Eos # (Auto) (0-0.3) K/mm3 Baso # (Auto) (0.0-0.1) K/mm3 Abs Immat Gran (auto) (0.00-0.031) K/mm3 Absolute Neuts (auto) (1.3-6.7) K/mm3 Absolute Nucleated RBC (0.0-0.012) K/mm3 Nucleated RBC % (0.0-0.2) % Sodium (137-145) mmol/L Potassium (3.4-5.0) mmol/L Chloride (98-107) mmol/L Carbon Dioxide (22-30) mmol/L Anion Gap (4-12) mmol/L BUN (9-20) mg/dL Creatinine (0.7-1.3) mg/dL Estim Creat Clear Calc ml/min Estimated GFR 38 L (59 - ) Glucose 133 H 134 H (65-110) mg/dL Calcium 9.2 9.1 (8.4-10.2) mg/dL Magnesium 1.8 (1.6-2.3) mg/dL Total Bilirubin 0.4 (0.2-1.3) mg/dL AST 37 (17-59) U/L ALT 68 H (6-50) U/L Alkaline Phosphatase 129 H (38-126) U/L Total Protein 7.3 (6.3-8.2) g/dL Albumin 4.4 (3.5-5.1) g/dL <Jannet Powell PA-C - Last Filed: 03/24/25 14:20> Lab Results 03/24/25 03/24/25 03/24/25 Range/Units 14:59 14:59 14:59 WBC 6.5 (4.5-10.0) K/mm3 RBC 4.15 L (4.6-6.20) M/mm3 Hgb 12.9 L (14.0-18.0) g/dL Hct 39.2 L (42.0-52.0) % MCV 94.5 (80-100) fl MCH 31.1 (26-34) pg MCHC 32.9 (32-36) g/dl RDW 11.8 (11.5-14.5) % Plt Count 194 (150-375) k/mm3 MPV 9.6 (7.4-10.4) fl Immature Gran % (Auto) 0.3 (0-0.5) % Neut % (Auto) 66.6 (45.5-73.1) % Lymph % (Auto) 22.8 (18.3-44.2) % Preble % (Auto) 8.2 (2.6-8.5) % Eos % (Auto) 1.5 (0-4.4) % Baso % (Auto) 0.6 (0.2-1.2) % Lymph # (Auto) 1.48 (0.9-3.2) K/mm3 Preble # (Auto) 0.5 (0.1-0.6) K/mm3 Eos # (Auto) 0.1 (0-0.3) K/mm3 Baso # (Auto) 0.0 (0.0-0.1) K/mm3 Abs Immat Gran (auto) 0.02 (0.00-0.031) K/mm3 Absolute Neuts (auto) 4.3 (1.3-6.7) K/mm3 Absolute Nucleated RBC 0.000 (0.0-0.012) K/mm3 Nucleated RBC % 0.0 (0.0-0.2) % Sodium 134 L 133 L (137-145) mmol/L Potassium 5.4 H 5.4 H (3.4-5.0) mmol/L Chloride 104 (98-107) mmol/L Carbon Dioxide (22-30) mmol/L Anion Gap (4-12) mmol/L BUN (9-20) mg/dL Creatinine (0.7-1.3) mg/dL Estim Creat Clear Calc ml/min Estimated GFR (59 - ) Glucose (65-110) mg/dL Calcium (8.4-10.2) mg/dL Magnesium (1.6-2.3) mg/dL Total Bilirubin (0.2-1.3) mg/dL AST (17-59) U/L ALT (6-50) U/L Alkaline Phosphatase (38-126) U/L Total Protein (6.3-8.2) g/dL Albumin (3.5-5.1) g/dL 03/24/25 03/24/25 03/24/25 Range/Units 14:59 14:59 14:59 WBC (4.5-10.0) K/mm3 RBC (4.6-6.20) M/mm3 Hgb (14.0-18.0) g/dL Hct (42.0-52.0) % MCV (80-100) fl MCH (26-34) pg MCHC (32-36) g/dl RDW (11.5-14.5) % Plt Count (150-375) k/mm3 MPV (7.4-10.4) fl Immature Gran % (Auto) (0-0.5) % Neut % (Auto) (45.5-73.1) % Lymph % (Auto) (18.3-44.2) % Preble % (Auto) (2.6-8.5) % Eos % (Auto) (0-4.4) % Baso % (Auto) (0.2-1.2) % Lymph # (Auto) (0.9-3.2) K/mm3 Preble # (Auto) (0.1-0.6) K/mm3 Eos # (Auto) (0-0.3) K/mm3 Baso # (Auto) (0.0-0.1) K/mm3 Abs Immat Gran (auto) (0.00-0.031) K/mm3 Absolute Neuts (auto) (1.3-6.7) K/mm3 Absolute Nucleated RBC (0.0-0.012) K/mm3 Nucleated RBC % (0.0-0.2) % Sodium (137-145) mmol/L Potassium (3.4-5.0) mmol/L Chloride 105 (98-107) mmol/L Carbon Dioxide 20 L 20 L (22-30) mmol/L Anion Gap 10 8 (4-12) mmol/L BUN 37 H (9-20) mg/dL Creatinine (0.7-1.3) mg/dL Estim Creat Clear Calc ml/min Estimated GFR (59 - ) Glucose (65-110) mg/dL Calcium (8.4-10.2) mg/dL Magnesium (1.6-2.3) mg/dL Total Bilirubin (0.2-1.3) mg/dL AST (17-59) U/L ALT (6-50) U/L Alkaline Phosphatase (38-126) U/L Total Protein (6.3-8.2) g/dL Albumin (3.5-5.1) g/dL 03/24/25 03/24/25 03/24/25 Range/Units 14:59 14:59 14:59 WBC (4.5-10.0) K/mm3 RBC (4.6-6.20) M/mm3 Hgb (14.0-18.0) g/dL Hct (42.0-52.0) % MCV (80-100) fl MCH (26-34) pg MCHC (32-36) g/dl RDW (11.5-14.5) % Plt Count (150-375) k/mm3 MPV (7.4-10.4) fl Immature Gran % (Auto) (0-0.5) % Neut % (Auto) (45.5-73.1) % Lymph % (Auto) (18.3-44.2) % Preble % (Auto) (2.6-8.5) % Eos % (Auto) (0-4.4) % Baso % (Auto) (0.2-1.2) % Lymph # (Auto) (0.9-3.2) K/mm3 Preble # (Auto) (0.1-0.6) K/mm3 Eos # (Auto) (0-0.3) K/mm3 Baso # (Auto) (0.0-0.1) K/mm3 Abs Immat Gran (auto) (0.00-0.031) K/mm3 Absolute Neuts (auto) (1.3-6.7) K/mm3 Absolute Nucleated RBC (0.0-0.012) K/mm3 Nucleated RBC % (0.0-0.2) % Sodium (137-145) mmol/L Potassium (3.4-5.0) mmol/L Chloride (98-107) mmol/L Carbon Dioxide (22-30) mmol/L Anion Gap (4-12) mmol/L BUN 38 H (9-20) mg/dL Creatinine 1.72 H 1.73 H (0.7-1.3) mg/dL Estim Creat Clear Calc 31 31 ml/min Estimated GFR 38 L (59 - ) Glucose (65-110) mg/dL Calcium (8.4-10.2) mg/dL Magnesium (1.6-2.3) mg/dL Total Bilirubin (0.2-1.3) mg/dL AST (17-59) U/L ALT (6-50) U/L Alkaline Phosphatase (38-126) U/L Total Protein (6.3-8.2) g/dL Albumin (3.5-5.1) g/dL 03/24/25 03/24/25 03/24/25 Range/Units 14:59 14:59 14:59 WBC (4.5-10.0) K/mm3 RBC (4.6-6.20) M/mm3 Hgb (14.0-18.0) g/dL Hct (42.0-52.0) % MCV (80-100) fl MCH (26-34) pg MCHC (32-36) g/dl RDW (11.5-14.5) % Plt Count (150-375) k/mm3 MPV (7.4-10.4) fl Immature Gran % (Auto) (0-0.5) % Neut % (Auto) (45.5-73.1) % Lymph % (Auto) (18.3-44.2) % Preble % (Auto) (2.6-8.5) % Eos % (Auto) (0-4.4) % Baso % (Auto) (0.2-1.2) % Lymph # (Auto) (0.9-3.2) K/mm3 Preble # (Auto) (0.1-0.6) K/mm3 Eos # (Auto) (0-0.3) K/mm3 Baso # (Auto) (0.0-0.1) K/mm3 Abs Immat Gran (auto) (0.00-0.031) K/mm3 Absolute Neuts (auto) (1.3-6.7) K/mm3 Absolute Nucleated RBC (0.0-0.012) K/mm3 Nucleated RBC % (0.0-0.2) % Sodium (137-145) mmol/L Potassium (3.4-5.0) mmol/L Chloride (98-107) mmol/L Carbon Dioxide (22-30) mmol/L Anion Gap (4-12) mmol/L BUN (9-20) mg/dL Creatinine (0.7-1.3) mg/dL Estim Creat Clear Calc ml/min Estimated GFR 38 L (59 - ) Glucose 133 H 134 H (65-110) mg/dL Calcium 9.2 9.1 (8.4-10.2) mg/dL Magnesium 1.8 (1.6-2.3) mg/dL Total Bilirubin 0.4 (0.2-1.3) mg/dL AST 37 (17-59) U/L ALT 68 H (6-50) U/L Alkaline Phosphatase 129 H (38-126) U/L Total Protein 7.3 (6.3-8.2) g/dL Albumin 4.4 (3.5-5.1) g/dL <Suma Doe MD - Last Filed: 03/24/25 16:17> Discharge Plan Discharge Clinical Impression: Acute hyperkalemia <Jannet Powell PA-C - Last Filed: 03/24/25 14:20> Patient Disposition: Home <Jannet Powell PA-C - Last Filed: 03/24/25 14:20> Condition: Stable <Jannet Powell PA-C - Last Filed: 03/24/25 14:20> Instructions: Hyperkalemia (ED) <Jannet Powell PA-C - Last Filed: 03/24/25 14:20> Additional Instructions: Please follow up with your doctor; you can keep hydrated but try to avoid anything with added potassium. You can always return for any further issues. <Jannet Powell PA-C - Last Filed: 03/24/25 14:20> Patient Language: Armenian <Jannet Powell PA-C - Last Filed: 03/24/25 14:20> Prescriptions: No Action multivitamin with minerals Tablet 1 tablet PO DAILY Eliquis 5 mg tablet 5 mg PO Q12H Patient Comments: HOLD FOR 48hrs prior per Dr Quintero/ acetaminophen [Acetaminophen Extra Strength] 500 mg tablet 1,000 mg PO Q6H PRN (Reason: pain) Skdhzfvppku-Qbzxx-PPG Complex 833-149-21-0.5 mg tablet 1 tablet PO DAILY lutein 20 mg capsule 20 mg PO DAILY Rx Instructions: give with meal/snack amlodipine [Norvasc] 5 mg Tablet 5 mg PO DAILY 30 Days Qty: 30 0RF sodium zirconium cyclosilicate 5 gram powder in packet 10 g PO DAILY 3 Days Qty: 3 0RF <Jannet Powell PA-C - Last Filed: 03/24/25 14:20> Follow-up/Referrals: PHYSICIAN NOT ON STAFF,NONSTAFF [Primary Care Provider] <Jannet Powell PA-C - Last Filed: 03/24/25 14:20>
--- NOTE | 2025-03-24 14:04 | ECG_ITS ---
Test Date: 2025-03-24 14:49:01 Measurements Intervals Chunky Rate: 70 P: 57 RI: 192 QRS: -66 QRSD: 150 T: 81 QT: 407 QTc: 442 Interpretive Statements ELECTRONIC VENTRICULAR PACEMAKER ABNORMAL RHYTHM ECG Compared to ECG 03/19/2025 13:11:22 No significant changes Electronically Signed On 03-24-2025 21:24:57 THERMODYNAMICS ENGINEER by Venkat Lu M.D.
[2025-03-24 14:53] VITALS: BP 164/75; PULSE 76; RESP 20; O2SAT 97
[2025-03-24 15:07] LABS: Hematocrit 39.2 % (42.0-52.0); Hemoglobin 12.9 g/dL (14.0-18.0); Immature Granulocyte Percent A 0.3 % (0-0.5); Lymphocytes Absolute Auto 1.48 K/mm3 (0.9-3.2); Mean Corpuscular HGB Conc 32.9 g/dl (32-36); Mean Corpuscular Hemoglobin 31.1 pg (26-34); Mean Corpuscular Volume 94.5 fl (80-100); Nucleated Red Blood Cells Absolute Auto 0.000 K/mm3 (0.0-0.012); Nucleated Red Blood Cells Perc 0.0 % (0.0-0.2); Platelet Count Result 194 k/mm3 (150-375); Red Blood Count 4.15 M/mm3 (4.6-6.20); White Blood Count 6.5 K/mm3 (4.5-10.0)
[2025-03-24 15:18] LABS: Alanine Aminotransferase 68 U/L (6-50); Albumin Level 4.4 g/dL (3.5-5.1); Alkaline Phosphatase 129 U/L (38-126); Anion Gap 10 mmol/L (4-12); Anion Gap 8 mmol/L (4-12); Aspartate Amino Transferase 37 U/L (17-59); Bilirubin,Total 0.4 mg/dL (0.2-1.3); Blood Urea Nitrogen 37 mg/dL (9-20); Blood Urea Nitrogen 38 mg/dL (9-20); Calcium 9.1 mg/dL (8.4-10.2); Calcium 9.2 mg/dL (8.4-10.2); Carbon Dioxide 20 mmol/L (22-30); Chloride 104 mmol/L (98-107); Chloride 105 mmol/L (98-107); Estimated CRCL calculation 31 ml/min; Estimated Glomerular Filt Rate 38; Glucose 133 mg/dL (65-110); Glucose 134 mg/dL (65-110); Magnesium 1.8 mg/dL (1.6-2.3); Potassium 5.4 mmol/L (3.4-5.0); Sodium 133 mmol/L (137-145); Sodium 134 mmol/L (137-145); Total Protein 7.3 g/dL (6.3-8.2)
[2025-03-24 16:09] VITALS: BP 158/76; PULSE 76; RESP 17; TEMP 36.8; O2SAT 100; O2SAT 97
[2025-03-24] MEDS: SODIUM CHLORIDE 0.9% IV 1,000 ML 999 ML IV CONT (16:09)
--- OUTSIDE RECORDS SUMMARY | 2025-03-24 16:13 | XMS_ITS | Encounter Summary ---
Author Organization [facility] Address [address] [place] [address] Care Team Providers Care Private Chef Name Role Phone Unavailable Primary Care Provider Unavailabl e Encounter Details Date Type Department Care Team (Late st Contact Info) Description 10/09/2024 Lab Requisition [facility] - DermPath Lab [address] [place] [id number] Claire Hammond PA [address] [place] [id number] Neoplasm of uncertain behavior of skin Social [...] AM CDT) Case Report Dermatopathology Report Case: [id number] Authorizing Provider: Claire Hammond PA Collected: 10/09/2024 11:18 AM Ordering Location: [facility] - [...] specimen consists of a shave biopsy measuring [id number] mm. Jar 0. 12:36 PM CDT DERMATOPATHOLOGY [...] characteristic determined by the Dermatopathology Laboratory at [facility], directed by Dr. Vick Winters. These tests need not be, and therefore are not, approved by the [place] Food and Drug Administration. The tests are used for clinical purposes. Billing Codes Specimen Charges Stain Charges 58824 1 12:36 PM CDT DERMATOPATHOLOGY LABORATORY Embedded Images 12:36 PM CDT DERMATOPATHOLOGY LABORATORY Pathology/Cytolo gy TISSUE SPECIMEN FROM SKIN / Unknown 10/09/2024 11:18 AM CDT 10/14/2024 7:06 AM CDT [facility] - PATHOLOGY/CYTOLOGY OR DERABLES Final Result DERMATOPATHOLOGY LABORATORY [facility] - Department of Dermatology [address], [address] [phone] documented in this encounter Visit Diagnoses Diagnosis Neoplasm of uncertain behavior of skin documented in this encounter
--- OUTSIDE RECORDS SUMMARY | 2025-03-24 16:13 | XMS_ITS | Encounter Summary ---
Author Organization [facility] Address [address] [place] [address] Care Team Providers Care Active Directory Architect Name Role Phone Kendell Clark [facility] Primary Care Provider Sushil Seth DO Primary Care Provider Ruby Lewis APRN Primary Care Provider [phone] Annmarie Winchester [facility] Primary Care Provider + Encounter Details Date Type Department Care Team (Late st Contact Info) Description 07/04/2017 Abstract [facility] Clinics Conversion Md, Generic Conversion, Social History Tobacco Use Types Packs/Day Years Used Date Smoking Tobacco: Never Assessed Sex and Gender Information Value Date Recorded Sex Assigned at Male 07/23/2019 1:18 PM WOOD FINISHER Legal Sex Male 7:47 PM CDT Gender Identity Male 07/23/2019 1:18 PM WOOD FINISHER Sexual Orientation Straight 07/23/2019 1: 18 PM WOOD FINISHER documented as of this encounter Plan of Treatment Upcoming Encounters Date Type Department Care Team (Late st Contact Info) Description 03/27/2025 10:40 AM WOOD FINISHER Office Visit [facility] [address] [place] [address] Annmarie Winchester, [facility] [address] [place] [address] 04/12/2025 2:35 PM WOOD FINISHER Allied Health/Nurse Visit [place] [facility] THREE [facility], [address] [place] [address] Rodger Hong MD Three [facility]. [address] [place] [address] 04/13/2025 2:50 PM WOOD FINISHER Allied Health/Nurse Visit [facility] THREE [facility], [address] [place] [address] Rodger Hong MD Three [facility]. [address] [place] [address] 08/07/2025 9:15 AM CDT Office Visit [place] [facility] [address] [place] [address] Jodi Clarke PA 3 [facility], [address] [place] [address] 11/04/2025 10:00 AM CDT Office Visit [facility] [address] [place] [address] Ankita Paiz APRN 3 [facility], [facility] [address] [place], [place] [address] documented as of this encounter Visit Diagnoses Not on filedocumented in this encounter Care Teams Active Directory Architect Relationship Specialty Start Date End Date Kendell Clark FNP [address] [place] [address] PCP - General Nurse Practitioner Family 10/16/1803/10 Sushil Seth DO [address] [place] [address] PCP - General FAMILY PRACTICE 02/28/21 08/26/23 Ruby Lewis APRN [address] [place] [address] PCP - General NURSE PRACTITIONER 08/27/23 09/06/23 Annmarie Winchester, [facility]- [address] [place] [address] PCP - General NURSE PRACTITIONER 09/07/23 documented as of this encounter
--- OUTSIDE RECORDS SUMMARY | 2025-03-24 16:13 | XMS_ITS | Clinical Summary ---
Author Organization [facility] [address] Address [address] [place] [address] Care Team Providers Care Public Relations Studies Director Name Role Phone Ollie Moya MD Primary Care Provider [phone] Allergies Active Allergy Reactions Criticality Noted Date [...] on file Legal Sex Male 8:07 PM HISTORICAL GUIDE Gender Identity Not on file Sexual Orientation [...] Insurance MEDICARE [employer] SENIOR SUPPLEMENT Care Teams Public Relations Studies Director Relationship Specialty Start Date End Date Ollie Moya MD [address] [place] [address] PCP - General Orthopedic Surgery 01/08/23
--- OUTSIDE RECORDS SUMMARY | 2025-03-24 16:13 | XMS_ITS | Encounter Summary ---
Author Organization [facility] Address [address] [place] [address] Care Team Providers Care Traveling Sales Executive Name Role Phone Kendell Clark [facility] Primary Care Provider [phone] Sushil Seth DO Primary Care Provider Ruby Lewis SHOWER ROOM ATTENDANT Primary Care Provider [phone] Annmarie Winchester [facility] Primary Care Provider + Encounter Details Date Type Department Care Team (Late st Contact Info) Description 08/10/2015 Abstract [facility] Conversion Rodger Carmen MD [address] [address] Social History Tobacco Use Types Packs/Day Years Used Date Smoking Tobacco: Never Assessed Sex and Gender Information Value Date Recorded Sex Assigned at Male 07/23/2019 1:18 PM PAN TANK WORKER Legal Sex Male 7:47 PM CDT Gender Identity Male 07/23/2019 1:18 PM PAN TANK WORKER Sexual Orientation Straight 07/23/2019 1: 18 PM PAN TANK WORKER documented as of this encounter Miscellaneous Notes * Letter - Rodger Carmen MD - 08/10/2015 12:00 AM CDT Aug 10, 2015 Venkat Rosario [address] [place] [address] Dear Venkat Rosario, Thank you for choosing [facility] for your health care needs. We appreciate the opportunity to help you maintain your well being. You recently had health fair testing. Your results came back normal. Your cholesterol is elevated because your GOOD cholesterol is elevated. Please remember to follow up as discussed at your last appointment. If you have any questions please feel free to call the office at [phone], Option #3 or Option #1 to make an appointment to discuss these results. Respectfully Yours, Electronically Signed by: Rodger Carmen MD Cc: Patient?s Medical Record TANK WORKER * Letter - Rodger Carmen MD - 08/10/2015 12:00 AM CDT Aug 10, [address] [place] [address] Dear Venkat Rosario, Thank you for choosing [facility] for your health care needs. We appreciate the opportunity to help you maintain your well being. You recently had health fair testing Your results came back normal. Please remember to follow up as discussed at your last appointment .If you have any questions please feel free to call the office at [phone], Option #3 or Option #1 to make an appointment to discuss these results. Respectfully Yours, Electronically Signed by: Rodger Carmen MD Cc: Patient?s Medical Record TANK WORKER documented in this encounter Plan of Treatment Upcoming Encounters Date Type Department Care Team (Late st Contact Info) Description 03/27/2025 10:40 AM PAN TANK WORKER Office Visit [facility] [address] [place] [phone] Annmarie Winchester, SCAFFOLD ERECTOR- [address] [place] [address] 04/12/2025 2:35 PM PAN TANK WORKER Allied Health/Nurse Visit [place] [facility] THREE [facility], [facility] [address] [place] [address] Rodger Hong MD [facility]. [address] [place] [address] 04/13/2025 2:50 PM PAN TANK WORKER Allied Health/Nurse Visit [facility] THREE [facility], [address] [place] [address] Rodger Hong MD Three [facility]. [facility] [address] [place], [place] [address] 08/07/2025 9:15 AM CDT Office Visit [facility] [address] [place] [address] Jodi Clarke PA 3 [facility], [address] [place], [place] [address] 11/04/2025 10:00 AM CDT Office Visit [facility] [address] [place] [phone] Ankita Paiz APRN 3 [facility], [facility] [address] [place] [address] documented as of this encounter Visit Diagnoses Not on filedocumented in this encounter Care Teams Traveling Sales Executive Relationship Specialty Start Date End Date Kendell Clark FNP [address] [place] [address] PCP - General Nurse Practitioner Family 10/16/1803/10 Sushil Seth DO [address] [place] [address] PCP - General FAMILY PRACTICE 02/28/21 08/26/23 Ruby Lewis, ETHAN [address] [place] [address] PCP - General NURSE PRACTITIONER 08/27/23 09/06/23 Annmarie Winchester, [facility]- [address] [place] [address] PCP - General NURSE PRACTITIONER 09/07/23 documented as of this encounter
--- OUTSIDE RECORDS SUMMARY | 2025-03-24 16:13 | XMS_ITS | Clinical Summary ---
Author Organization [facility] Address [address] [place] [address] Care Team Providers Care Assistant Education Director Name Role Phone Annmarie Winchester [facility] Primary Care Provider + Allergies Active Allergy Reactions Criticality Noted Date Comments Oxycodone Nausea Only,Vomiting 06/30/2011 Reaction: NAUSEA, VOMITING, Medications Multiple Vitamins-Minera ls (MENS ONE DAILY OR) Take 1 capsule by mouth daily. Active glucosamine-cho ndroitin 500-400 MG Cap Take 1 capsule by mouth daily. Active ACETAMINOPHEN ER OR Take 500 mg by mouth daily as needed. Active Ostomy Supplies MiscIndications :Ulcerative pancolitis ([facility]) 1 Units by Does not apply route daily. 100 each 3 06/05/2022 Active apixaban (ELIQUIS) 5 MG tabletIndicatio ns:Acute deep vein thrombosis (DVT) of axillary vein of left upper extremity ([facility]) Take 1 tablet by mouth twice daily 60 tablet 6 05/20/2024 Active lisinopril (PRINIVIL) 20 MG tabletIndicatio ns:HTN (hypertension), benign Take 2 tablets by mouth once daily 180 tablet 02/09/2025 Active Active Problems Problem Noted Date Diagnosed Date Nonrheumatic aortic valve insufficiency 02/07/20 25 Assessment & Plan (02/06/2025 9:56 AM CDT): Is read as moderate to severe aortic regurgitation that is more likely in the moderate range. He does not show any evidence of left ventricular dilatation. He is not experiencing any heart failure symptoms. I would treat him conservatively at this point and he can get another echo next year. Paroxysmal atrial fibrillation 02/06/2025 Assessment & Plan (02/06/2025 9:57 AM CDT): He has paroxysmal atrial fibrillation listed in his diagnoses, but his EKGs all showed normal sinus rhythm and his pacemaker does not show any atrial fibrillation burden. Will discuss with device clinic. Preoperative cardiovascular examination 02/07/20 25 Assessment & Plan (02/06/2025 9:57 AM CDT): He is being evaluated for potential knee replacement. He is able to walk up a flight of stairs without chest pain or shortness of breath. He does not require any further cardiac testing. Would hold Eliquis 48 hours prior to knee surgery. Acute pain of right shoulder 02/02/2025 Biceps tendinitis of right shoulder 02/02/2025 HTN (hypertension), benign 03/27/2024 Assessment & Plan (02/06/2025 9:56 AM CDT): His blood pressure is elevated in the office today. Recommend home blood pressure monitoring. Continue lisinopril. 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 Assessment & Plan (02/06/2025 9:56 AM CDT): He is status post pacemaker placement. Continue to follow with the device clinic. 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 Overview (10/21/2018): Note: Merlyn: Rectal ulcer with intramucosal CA 06/30/2010 Haris: T3 Nx Rectal CA Date Onset: 06/07/2010 Ulcerative pancolitis 09/13/2010 Overview (10/21/2018): Note: Rufina per colonoscopy Date Onset: 03/10/2008 Resolved Problems Problem Noted Date Diagnosed Date Resolved Date Osteoarthritis of right knee 03/20/2023 09/07/2023 Right knee pain 02/03/2022 09/07/2023 Encounters Date Type Department Care Team Description 03/19/2025 Telephone [place] [facility] [facility], [address] [address] Rodger Hong MD Information (Preop information) 03/09/2025 Scan [facility] INFO SRVCS Scanned, Doc [facility] 02/19/2025 Scan MG HEALTH INFO SRVCS Scanned, Doc [facility] 02/13/2025 Telephone [place] [facility] [facility], [address] [address] Surya Quintero MD Surgical Clearance 02/09/2025 9:52 AM CDT - 02/09/2025 11:59 PM CDT Hospital Encounter [facility] [address] [place] [address] Francheska Kearney, PT Annmarie Winchester, MANAGER CHANGE- Shoulder Pain (2) Discharge Disposition: Home or Self Care (Routine Discharge) 02/09/2025 Travel 02/06/2025 9:30 AM CDT Office Visit [place] [facility] [address] [place] [address] Surya Quintero MD Aortic Valve Disorder 02/06/2025 Travel 02/02/2025 12:29 PM CDT - 02/02/2025 11:59 PM CDT Hospital Encounter [facility] [address] [place] [address] Francheska Kearney, PT Arentsen, Annmarie R, MANAGER CHANGE-BC Shoulder Pain (Initial Eval 1) Discharge Disposition: Home or Self Care (Routine Discharge) 02/02/2025 Travel 01/15/2025 11:00 AM CDT Office Visit [facility] [address] [place] [address] Annmarie Winchester FNP-BC Shoulder Pain 01/15/2025 Travel 01/13/2025 Travel 01/11/2025 2:25 PM CDT Allied Health/Nurse [facility] [place] [facility], [facility] [address] [place] [address] Rodger Hong MD Remote Device Check 01/02/2025 Telephone [facility], [facility] [address] [place] [address] Rodger Hong MD Information from Last 3 Months Immunizations Immunization Administration Dates Next Due Fluzone High Dose (IIV, trivalent, 0.5mL) 2023 Fluzone High Dose - >Age 65 (Prefilled Syringe) 03/20/2022 MODERNA COVID-19 (12+) MRNA, LNP-S, PF, 100 MCG/ 0.5 ML DOSE 07/23/2020,06/25/2020 Pneumococcal (Prevnar 20) 09/26/2024 Tdap (Generic) 10/06/2017 Family History Medical History Relation Comments Stroke Father No Known Problems Maternal Grandfather No Known Problems Maternal Grandmother Breast Cancer Mother No Known Problems Paternal Grandfather No Known Problems Paternal Grandmother Relation Status Comments Father Maternal Grandfather Maternal Grandmother Mother Paternal Grandfather Paternal Grandmother Social History Tobacco Use Types Packs/Day Years Used Date Smoking Tobacco: Former Cigarettes Q uit: 2000 Passive Smoke Exposure: Never Smokeless Tobacco: Never Tobacco Cessation:Counseling Given: No Alcohol Use Standard Drinks/Week Comments Yes 23.3 (1 standard dri nk = 0.6 oz pure alcohol) daily, 2-3 beers an 2 cocktails AUDIT-C Answer Date Recorded Frequency of Alcohol Consumption 4 or more times a week 07/23/2019 Average Number of Drinks 1 or 2 020 Frequency of Binge Drinking Never 08/2019 PHQ-2 Answer Date Recorded Patient Health Questionnaire-2 Score 0 01/15/2025 Sex and Gender Information Value Date Recorded Sex Assigned at Male 07/23/2019 1:18 PM BINDER CASER Legal Sex Male 7:47 PM CDT Gender Identity Male 07/23/2019 1:18 PM BINDER CASER Sexual Orientation Straight 07/23/2019 1: 18 PM BINDER CASER Last Filed Vital Signs Vital Sign Reading Time Taken Comments Blood Pressure 150/70 02/06/2025 9:31 AM CDT Pulse 66 02/06/2025 9:31 AM CDT Temperature 36.5 C (97.7 F) 01/15/2025 11:05 AM CDT Respiratory Rate 18 01/15/2025 11:05 AM CDT Oxygen Saturation 96% 02/06/2025 9:31 AM CDT Inhaled Oxygen Concentration - - Weight 93.4 kg (206 lb) 02/06/2025 9:31 AM CDT Height 180.3 cm (5' 11) 02/06/2025 9:31 AM CDT Body Mass Index 28.73 02/06/2025 9:31 AM CDT Plan of Treatment Upcoming Encounters Date Type Department Care Team (Late st Contact Info) Description 03/27/2025 10:40 AM BINDER CASER Office Visit [facility] [address] [place] [phone] Annmarie Winchester, [facility]- [address] [place] [address] 04/12/2025 2:35 PM BINDER CASER Allied Health/N[facility] [address] [place] [place], [place] [address] Rodger Hong MD [place]. [facility] [address] [place], [place] [address] 04/13/2025 2:50 PM BINDER CASER Allied Health/N[facility] [address] [place] [address] Rodger Hong MD Three [facility]. [address] [place] [place], [place] [address] 08/07/2025 9:15 AM CDT Office Visit [facility] [place] [facility] [address] [address] Jodi Clarke PA 3 [facility], [address] [place] [address] 11/04/2025 10:00 AM CDT Office Visit [place] [facility] [address] [place] [phone] Ankita Paiz, PRODUCT DELIVERY SPECIALIST [address] [facility], [facility] [address] [place], [place] [address] Health Maintenance Due Date Last Done Comments Zoster Vaccines (1 of 2) 1991 RSV Immunization or 60+ Years (1 - 1-dose 75+ series) 01/06/2016 Annual Medicare Wellness Visit 11/20/2021 11/19/2020 COVID-19 Vaccine ( season) 2025 02/28/2024, 06/01/2023, 04/20/2022, Additional history exists Influenza Adult (#1) 2025 02/28/2024, 03/20/20 22 DTaP, Tdap and Td Vaccines (2 - Td or Tdap) 10/07/2027 10/06/2017 Pneumococcal Vaccine: 50+ Years Completed 09/26/2024 PHQ-2 (Physician [place]) Completed 01/15/2025 Hepatitis A Vaccines Aged Out No long er eligible based on patient's age to complete this topic Meningococcal B Vaccine Aged Out No l onger eligible based on patient's age to complete this topic Meningococcal Vaccine Aged Out No michele alma rosa eligible based on patient's age to complete this topic RSV Immunizations Under 20 Months Aged Out No longer eligible based on patient's age to complete this topic Medical Devices Implanted Type Area Oiling Machine Operator Device Identifier Shelf Expiration Date Model / Serial / Lot Rv Armando Hwang Mri Lead Implant- 024 Implanted:Qty : 1 on 09/26/2023 by Cameron Joy MD Lead Implant [employer] [id number] 07/30/2025 [id number] / [id number] / Description:armando Hwang Mri Lead Implant- 024 Implanted:Qty : 1 on 09/26/2023 by Cameron Joy MD Lead Implant [employer] [id number] 07/10/2025 [id number] / [id number] / Eri Mri Pacemaker-09/25 Implanted:Qty : 1 on 09/26/2023 by Cameron Joy MD Pacemaker [employer] [id number] 01/15/2025 [id number] / [id number] / Insurance MEDICARE AET Care Teams Assistant Education Director Relationship Specialty Start Date End Date Annmarie Winchester, MANAGER CHANGE- [address] [place], [place] [phone] PCP - General NURSE PRACTITIONER 09/07/23
--- OUTSIDE RECORDS SUMMARY | 2025-03-24 16:13 | XMS_ITS | Clinical Summary ---
Author Organization [facility] Address [address] [facility] [place] [address] Care Team Providers Care Mri Assistant Name Role Phone Unavailable Primary Care Provider Unavailabl e Source Comments [facility],non-owned Affiliates and Associated Physician Practices is amultiple site organization consisting of ambulatory clinics and hospital sitesin [place], [place], [place] and [place]. This disclosure is being madepursuant to the Care Everywhere program and may not contain all information available regarding this patient. Last updated 18.[facility] Social History Tobacco Use Types Packs/Day Years [...]
--- OUTSIDE RECORDS SUMMARY | 2025-03-24 16:13 | XMS_ITS | Encounter Summary ---
Author Organization [facility] Address [address] [place] [address] Care Team Providers Care Instrument Calibrator Name Role Phone Kendell Clark [facility] Primary Care Provider [phone] Sushil Seth DO Primary Care Provider Ruby Lewis APRN Primary Care Provider [phone] Annmarie Winchester [facility] Primary Care Provider + Encounter Details Date Type Department Care Team (Late st Contact Info) Description 07/17/2017 Abstract [facility] Conversion Md, Generic Conversion, Social History Tobacco Use Types Packs/Day Years Used Date Smoking Tobacco: Never Assessed Sex and Gender Information Value Date Recorded Sex Assigned at Male 07/23/2019 1:18 PM BURNER SHAFT Legal Sex Male 7:47 PM CDT Gender Identity Male 07/23/2019 1:18 PM BURNER SHAFT Sexual Orientation Straight 07/23/2019 1: 18 PM BURNER SHAFT documented as of this encounter Plan of Treatment Upcoming Encounters Date Type Department Care Team (Late st Contact Info) Description 03/27/2025 10:40 AM BURNER SHAFT Office Visit [facility] [address] [place] [address] Annmarie Winchester, [facility] [address] [place] [address] 04/12/2025 2:35 PM BURNER SHAFT Allied Health/Nurse Visit [place] [facility], [address] [place] [address] Rodger Hong MD Three [facility]. [address] [place] [address] 04/13/2025 2:50 PM BURNER SHAFT Allied Health/Nurse Visit [facility], [address] [place] [address] Rodger Hong MD Three [facility]. [address] [place] [address] 08/07/2025 9:15 AM CDT Office Visit [place] [facility] [address] [place] [address] Jodi Clarke PA 3 [facility], [address] [place] [address] 11/04/2025 10:00 AM CDT Office Visit [facility] [address] [place] [address] Ankita Paiz APRN 3 [facility], [facility] [address] [place], [place] [address] documented as of this encounter Visit Diagnoses Not on filedocumented in this encounter Care Teams Instrument Calibrator Relationship Specialty Start Date End Date Kendell Clark FNP [address] [place] [address] PCP - General Nurse Practitioner Family 10/16/1803/10 Sushil Seth DO [address] [place] [address] PCP - General FAMILY PRACTICE 02/28/21 08/26/23 Ruby Lewis APRN [address] [place] [address] PCP - General NURSE PRACTITIONER 08/27/23 09/06/23 Annmarie Winchester, [facility]- [address] [place] [address] PCP - General NURSE PRACTITIONER 09/07/23 documented as of this encounter
[2025-03-24 17:39] VITALS: BP 161/77; PULSE 80; RESP 16; O2SAT 97
== END 2025-03-24 17:43 | disposition home or self-care (01) ==
PROVIDERS: Physician Assistant; Emergency Provider Emergency Medicine
DX: E87.5 Hyperkalemia (principal); I10 Essential (primary) hypertension; I48.91 Unspecified atrial fibrillation; I35.1 Nonrheumatic aortic (valve) insufficiency; M17.0 Bilateral primary osteoarthritis of knee; Z95.0 Presence of cardiac pacemaker; Z96.651 Presence of right artificial knee joint; Z87.891 Personal history of nicotine dependence; Z90.49 Acquired absence of other specified parts of digestive tract; Z98.42 Cataract extraction status, left eye; Z98.41 Cataract extraction status, right eye; Z79.01 Long term (current) use of anticoagulants; Z79.899 Other long term (current) drug therapy
CPT/HCPCS: 36415; 80048; 80053; 83735; 85025; 93005; 96360; 99283; J7030